=== PATIENT | female | born 1955 ===

== ENCOUNTER 2021-03-20 15:25 | Inpatient (IN) | payer MEDICARE, OTHER ==
[~2021-03-20] VITALS: Ht 167.6 cm; Wt 76.8 kg
[2021-03-20] MEDS ORDERED: CELE100C PO (15:45)
[2021-03-20] MEDS ORDERED: METO-247 PO (16:00)
[2021-03-20] MEDS ORDERED: TEMA15CA6 PO (16:00)
[2021-03-20] MEDS ORDERED: VENL150C PO (16:00)
[2021-03-20] MEDS ORDERED: LITH300T30 PO (16:00)
[2021-03-20] MEDS ORDERED: DONE5TAB56 PO (16:00)
[2021-03-20] MEDS ORDERED: VALA500T5 PO (16:00)
[2021-03-20] MEDS ORDERED: OLAN5TAB99 PO (16:00)
[2021-03-20] MEDS ORDERED: DICL100G28 TP (16:00)
[2021-03-20] MEDS ORDERED: LAMO200T3 PO (16:00)
[2021-03-20] MEDS ORDERED: METHYL SALICYLATE/MENTHOL TOPICAL OINTMENT 57GM TUBE. TP PRN (22:15)
[2021-03-20] MEDS ORDERED: MAGNESIUM HYDROXIDE 2,400 MG/30 ML ORAL.SUSP. PO PRN (22:15)
[2021-03-20] MEDS ORDERED: MAG HYDROX/AL HYDROX/SIMETH 30 ML ORAL.SUSP PO PRN (22:15)
[2021-03-20 22:20] VITALS: BP 151/94
--- NOTE | 2021-03-20 23:00 | NUR ---
Patient has been provided with Practical Counseling for tobacco cessation. It included a face to face interaction and the following was discussed: Recognizing danger situations, Developing coping skills,Basic cessation information. Will follow for discharge needs and discharge planning. Discussed at length the reason she smokes, where in her home she smokes, the emotional tie to smoking addiction issues. She states she wants to quit and there is no reason she can't now that she is admitted. She normally smokes to relieve stress from her situation mostly outside, which also gives her alone time. Pt currently wearing patch which I instructed her to take off at night and apply during the day for maximal sleep benefit. Pt alert and oriented and understands cessation education and was an active participant in the discussion.
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
[2021-03-21 06:17] VITALS: BP 124/86
[2021-03-21 06:22] LABS: BASO % 1 % (0-3); EOS # 0.3 x10^3/uL (0.0-0.7); EOS % 4 % (0-3); HEMATOCRIT 42.1 % (36.0-47.0); LYMPH # 1.6 x10^3/uL (1.0-4.8); LYMPH % 18 % (24-48); MEAN CORPUSCULAR HEMOGLOBIN 32 pg (25-35); MEAN CORPUSCULAR HGB CONC 33 g/dL (31-37); MEAN CORPUSCULAR VOLUME 96 fL (79-100); MONO # 0.8 x10^3/uL (0.0-1.1); MONO % 9 % (0-9); NEUT # 6.2 x10^3uL (1.8-7.7); NEUT % 69 % (31-73); PLATELET COUNT 243 x10^3/uL (140-400); RED BLOOD COUNT 4.37 x10^6/uL (3.50-5.40); RED CELL DISTRIBUTION WIDTH 12.6 % (11.5-14.5)
[2021-03-21 06:33] LABS: BACTERIA,URINE FEW /HPF (0-FEW); BILIRUBIN,URINE NEG (NEG); CLARITY,URINE CLEAR; COLOR,URINE YELLOW; GLUCOSE,URINE NEG (NEG); NITRITE,URINE NEG (NEG); RBC,URINE OCC /HPF (0-2); UROBILINOGEN,URINE 0.2 mg/dL (0.2 mg/dL)
[2021-03-21 06:34] LABS: SQUAMOUS EPITHELIAL CELL,UR FEW /LPF
[2021-03-21 06:39] LABS: ALBUMIN 3.4 g/dL (3.4-5.0); GFR 55.3; POTASSIUM 3.5 mmol/L (3.5-5.1); TOTAL BILIRUBIN 0.8 mg/dL (0.2-1.0); TOTAL PROTEIN 6.8 g/dL (6.4-8.2)
[2021-03-21] MEDS ORDERED: FLU VACC QUAD 21-22 (6MOS+) PF 0.5 ML SYRINGE. VAX IM ONE (09:00)
[2021-03-21] MEDS: NICOTINE 21MG PATCH. TD SCH (09:23)
[2021-03-21] MEDS ORDERED: traZODone 50 MG TABLET. PO PRN ×2 (13:45→20:15)
--- NOTE | 2021-03-21 14:12 | NUR ---
ACTIVITY THERAPY ASSESSMENT completed based on notes, observation and interview. Pt was compliant during time of assessment and pleasant. Pt said that she enjoys walking, reading and drawing. Pt was able to answer all orientation questions without error. Pt stated that she was brought here for her medications. Pt said she either took too many or it was the wrong combination. Pt said that she had a history of depression. Pt states that she has been for 47 years and has three children. Pt reports that she has good contact with her children. Pt does report some stress from being in the hospital and expressed concern for another patient. She said it makes her sad to see another patient struggling. SQL REPORT WRITER explained that the other patient is getting the help she needs. Pt still seemed a bit distraught by the situation. Pt accepted a couple magazines and also has a personal book in her room. Initial goal aimed to increase socialization and engagement. Pt will participate in at least three Activity Therapy sessions per week.
--- NOTE | 2021-03-21 14:48 | NUR ---
Nurse Note Day Shift: Pt presents with calm/pleasant mood/affect. Pt is low-wilkinson on the unit. When asked if pt knew why she was here, pt replied, "I don't know why." Pt is medication compliant, calm and cooperative. Pt is noted to spend time in her bedroom today. Pt slept 3.75 hours last night. Pt is able to make needs known to staff. Will continue to monitor.
[2021-03-21 15:23] VITALS: BP 158/103
--- NOTE | 2021-03-21 15:47 | NUR ---
Pt had a blood pressure of 158/103 at 1523. Retook BP right now and it is 168/115. Pt is resting and relaxing in bed. Doctor has been notified and said to continue to monitor, and to not treat it right now because pt is in a new environment and worked up from being in new environment. Will continue to monitor.
[2021-03-21 15:53] VITALS: BP 168/115
[2021-03-21] MEDS ORDERED: DICLOFENAC SODIUM 1% TOPICAL GEL 100GM TUBE. TP PRN (19:00)
[2021-03-21] MEDS ORDERED: valACYclovir 500 MG TABLET. PO PRN (19:00)
--- NOTE | 2021-03-21 20:29 | PDOC ---
Exam Note: Lito Note: Please also refer to the separate dictated note~for this date of service dictated separately.~Patient seen individually. Discussed the patient with Nursing staff reviewed the chart.~Reviewed interim history and current functioning. Reviewed vital signs,~Labs/ Radiology~and current medications noted below. Continue current treatment with the changes noted in the dictated addendum note Assessment: Vital Signs/I&O: Vital Signs Date Time Temp Pulse Resp B/P (MAP) Pulse Ox O2 Delivery O2 Flow Rate FiO2 03/21/21 15:53 168/115 (132) 03/21/21 15:23 98.0 94 18 93 03/20/21 22:20 Room Air I & O 03/20/21 03/20/21 03/21/21 15:00 23:00 07:00 Intake Total 120 ml Balance 120 ml Labs: Laboratory Tests Test 03/21/21 06:00 03/21/21 06:05 Urine Collection Type Void Urine Color Yellow Urine Clarity Clear Urine pH 6.5 Urine Specific [place] 1.010 Urine Protein Trace (NEG-TRACE) Urine Glucose (UA) Neg mg/dL (NEG) Urine Ketones (Stick) Neg mg/dL (NEG) Urine Blood Trace (NEG) Urine Nitrite Neg (NEG) Urine Bilirubin Neg (NEG) Urine Urobilinogen Dipstick 0.2 mg/dL (0.2 mg/dL) Urine Leukocyte Esterase Mod (NEG) Urine RBC Occ /HPF (0-2) Urine WBC 5-10 /HPF (0-4) Urine Squamous Epithelial Cells Few /LPF Urine Transitional Epithelial Cells Few /LPF Urine Renal Epithelial Cells Few /LPF Urine Bacteria Few /HPF (0-FEW) White Blood Count 9.0 x10^3/uL (4.0-11.0) Red Blood Count 4.37 x10^6/uL (3.50-5.40) Hemoglobin 14.0 g/dL (12.0-15.5) Hematocrit 42.1 % (36.0-47.0) Mean Corpuscular Volume 96 fL (79-100) Mean Corpuscular Hemoglobin 32 pg (25-35) Mean Corpuscular Hemoglobin Concent 33 g/dL (31-37) Red Cell Distribution Width 12.6 % (11.5-14.5) Platelet Count 243 x10^3/uL (140-400) Neutrophils (%) (Auto) 69 % (31-73) Lymphocytes (%) (Auto) 18 % (24-48) L Monocytes (%) (Auto) 9 % (0-9) Eosinophils (%) (Auto) 4 % (0-3) H Basophils (%) (Auto) 1 % (0-3) Neutrophils # (Auto) 6.2 x10^3uL (1.8-7.7) Lymphocytes # (Auto) 1.6 x10^3/uL (1.0-4.8) Monocytes # (Auto) 0.8 x10^3/uL (0.0-1.1) Eosinophils # (Auto) 0.3 x10^3/uL (0.0-0.7) Basophils # (Auto) 0.0 x10^3/uL (0.0-0.2) D-Dimer (Joanna) 10.40 mg/L (0.00-0.50) H Sodium Level 139 mmol/L (136-145) Potassium Level 3.5 mmol/L (3.5-5.1) Chloride Level 106 mmol/L (98-107) Carbon Dioxide Level 21 mmol/L (21-32) Anion Gap 12 (6-14) Blood Urea Nitrogen 23 mg/dL (7-20) H Creatinine 1.0 mg/dL (0.6-1.0) Estimated GFR (Cockcroft-Gault) 55.3 BUN/Creatinine Ratio 23 (6-20) H Glucose Level 102 mg/dL (70-99) H Calcium Level 9.0 mg/dL (8.5-10.1) Magnesium Level 2.1 mg/dL (1.8-2.4) Total Bilirubin 0.8 mg/dL (0.2-1.0) Aspartate Amino Transferase (AST) 26 U/L (15-37) Alanine Aminotransferase (ALT) 26 U/L (14-59) Alkaline Phosphatase 89 U/L (46-116) Total Protein 6.8 g/dL (6.4-8.2) Albumin 3.4 g/dL (3.4-5.0) Albumin/Globulin Ratio 1.0 (1.0-1.7) Current Medications: Meds: Current Medications Medications (Trade) Dose Ordered Sig/Price Route PRN Reason Start Time Stop Time Status Last Admin Dose Admin Nicotine (Nicoderm Cq 21mg Patch) 1 patch DAILY TD 03/21/21 09:00 03/21/21 09:23 I have reviewed the current psychotropics carefully including drug interactions. Risk benefit ratio favors no change other than as noted in my dictated progress note. TAWANDA ALEJANDRO MD Mar 21, 2021 20:28
[2021-03-21] MEDS ORDERED: traZODone 50 MG TABLET. PO SCH (21:00)
[2021-03-21] MEDS: METOPROLOL SUCC 24HR ER 50 MG TAB.ER.24H. PO SCH (21:07)
[2021-03-21] MEDS: CELECOXIB 100 MG CAPSULE PO SCH (21:07)
[2021-03-21] MEDS: lamoTRIgine 100 MG TABLET. PO SCH (21:07)
--- NOTE | 2021-03-21 22:02 | HP ---
DATE OF SERVICE: 03/21/2021 ADMIT DATE: 03/20/2021 PSYCHIATRIC ADMISSION HISTORY/EVALUATION This note covers elements not covered in my initial note 03/21. Previously discussed the patient with Dalia Workman, account coordinator, reviewed information from [facility] where she was admitted from home status post overdose of her medications in a suicide attempt consequent to worsening symptoms of depression within the premorbid history of bipolar disorder. She has been treated at [facility] outpatient treatment in [place] and has failed all of this treatment. The patient's behaviors were deemed dangerous to herself, status post suicidal attempt and referred for inpatient psychiatric stabilization. She had a psychiatric consult completed at [facility] following which she was referred to us. CHIEF COMPLAINT: "Yes, I have been depressed. It got very overwhelming over Thanksgiving with too many people coming when I was not expecting them and it has just been getting worse since then." HISTORY OF PRESENT ILLNESS: The patient has a long history of bipolar disorder, treated outpatient as noted above. Recently, she has been getting increasingly depressed, helpless, hopeless, worthless, with some sleep and appetite changes. She did make the above suicide attempt by overdose, but denies current suicidal ideation. No clear psychotic symptoms or homicidal ideation. She does have a history of mood swings consistent with her bipolar diagnosis. PAST PSYCHIATRIC HISTORY: As above. MEDICATIONS: All her psychotropics have been stopped at [facility] prior to this referral, but before that she was taking Lamictal 200 mg a day, Effexor XR 150 mg a day, Restoril 15 mg at bedtime p.r.n., Aricept 5 mg a day, lithium carbonate 300 mg at bedtime. FAMILY HISTORY: Noncontributory. SOCIAL HISTORY: No history of alcohol, drug abuse, physical, sexual, elder abuse history is noted. She is not known to be a perpetrator. 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 ALLERGIES: CODEINE PHOSPHATE AND IBUPROFEN. CODE STATUS: Full code. PAST MEDICAL HISTORY: Positive for herpes zoster, tobacco use, chronic constipation, hypertension, tinnitus, history of tubal ligation, chronic kidney disease stage III, history of falls, status post Barone catheter. Ambulates independently. Takes medications whole. ACCU-CHEKS: None. DIET: Mechanical soft, bite size renal diet. REVIEW OF SYSTEMS: No CV, , pulmonary, eye, ENT system symptoms on review. Reliability fair. MENTAL STATUS EXAM: Oriented reasonably. Speech is coherent, low in rate and rhythm, low in volume. Abstraction fair. Computation impaired. Language function intact. Attention span short. Mood and affect depressed, but no active suicidal ideation. LABORATORY DATA: Reviewed. IMPRESSION: Bipolar 1 disorder, depressed; anxiety disorder, unspecified; impulse control disorder, unspecified. Rest as above. PLAN: Admit to Geropsychiatry unit at [facility]. I will see the patient daily individually from a psychiatric standpoint, medical followup Dr. Cr/Dr. Stone. We will go ahead and restart Lamictal 100 mg a day given her bipolar disorder diagnosis, depressed. May consider restarting lithium in due course post baseline assessment. Use trazodone 50 mg at bedtime p.r.n. insomnia, may repeat x1; Zyprexa 2.5 mg q. 2 hours p.r.n., psychosis, agitation, max 10 mg in 24 hours. ESTIMATED LENGTH OF STAY: 10-12 days. DISPOSITION PLANS: Possibly back to home and outpatient treatment at [facility]. LISA DR: PEDRO/raiza TID: [id number]
--- NOTE | 2021-03-22 00:09 | NUR ---
Nursing Note Pt pleasant and cooperative. Alseep in bed awakens to voice. No behaviors. Denies Si.
[2021-03-22 00:10] LABS: HEMOGLOBIN A1C 5.2 % (4.8-5.6); THYROXINE 6.5 ug/dL (4.5-12.0)
[2021-03-22 07:24] VITALS: BP 147/93
[2021-03-22] MEDS ORDERED: METOPROLOL SUCC 24HR ER 50 MG TAB.ER.24H. PO SCH (09:00)
[2021-03-22] MEDS: CELECOXIB 100 MG CAPSULE PO SCH ×2 (09:04→21:02)
[2021-03-22] MEDS: METOPROLOL SUCC 24HR ER 50 MG TAB.ER.24H. PO SCH (09:04)
[2021-03-22] MEDS: NICOTINE 21MG PATCH. TD SCH (09:04)
--- NOTE | 2021-03-22 11:50 | NUR ---
Nurse Day Shift Note: Pt presents with calm mood/affect. Pt is medication compliant. Pt is approachable and engages when approached by staff. Pt slept 6.5 hours last night. Pt ate 75% of her breakfast. Pt is low-wilkinson on the unit and is noted to spend time resting quietly in her room. Will continue to monitor.
[2021-03-22 15:16] VITALS: BP 160/110
--- NOTE | 2021-03-22 20:56 | PDOC ---
Exam Note: Lito Note: Please also refer to the separate dictated note~for this date of service dictated separately.~Patient seen individually. Discussed the patient with Nursing staff reviewed the chart.~Reviewed interim history and current functioning. Reviewed vital signs,~Labs/ Radiology~and current medications noted below. Continue current treatment with the changes noted in the dictated addendum note Assessment: Vital Signs/I&O: Vital Signs Date Time Temp Pulse Resp B/P (MAP) Pulse Ox O2 Delivery O2 Flow Rate FiO2 03/22/21 15:16 99.2 79 18 160/110 (127) 97 03/20/21 22:20 Room Air I & O 03/21/21 03/21/21 03/22/21 14:59 22:59 06:59 Intake Total 360 ml 360 ml Balance 360 ml 360 ml Current Medications: Meds: Current Medications Medications (Trade) Dose Ordered Sig/Price Route PRN Reason Start Time Stop Time Status Last Admin Dose Admin Trazodone HCl (Desyrel) 50 mg QHS PO 03/21/21 21:00 03/21/21 21:08 Celecoxib (CeleBREX) 100 mg BID PO 03/21/21 21:00 03/22/21 09:04 Metoprolol Succinate (Toprol Xl) 100 mg DAILY PO 03/21/21 21:00 03/22/21 09:04 Lamotrigine (LaMICtal) 100 mg HS PO 03/21/21 21:00 03/21/21 21:07 I have reviewed the current psychotropics carefully including drug interactions. Risk benefit ratio favors no change other than as noted in my dictated progress note. Diagnosis: Problems: (1) Bipolar 1 disorder, depressed (2) Anxiety disorder, unspecified (3) Impulse control disorder, unspecified TAWANDA ALEJANDRO MD Mar 22, 2021 20:56
[2021-03-22] MEDS: lamoTRIgine 100 MG TABLET. PO SCH (21:02)
[2021-03-22] MEDS: TEMAZEPAM 15 MG CAPSULE PO PRN (21:19)
--- NOTE | 2021-03-22 23:27 | NUR ---
Pt located in the hallway this evening. Pt pleasant and interactive. A/O x4. Pt stated that she had strange dreams last night after taking Trazodone. Dr. Liu discontinued the med. Pt compliant with whole medications. PRN Temazepam administered per pt request. Pt currently sleeping.
[2021-03-23] MEDS: ACETAMINOPHEN 325 MG TABLET PO PRN (04:44)
[2021-03-23 05:46] VITALS: BP 139/78
--- NOTE | 2021-03-23 06:41 | CONS ---
DATE OF CONSULTATION: 03/21/2021 ATTENDING PHYSICIAN: Dr. Alejandro. We are asked to see the patient for medical consultation. HISTORY OF PRESENT ILLNESS: The patient is a 65-year-old female transferred here from [facility] in [place], [place]. She lives in [facility] with her . She has a longstanding history of bipolar disorder. She has become little more agitated. She spray-painted the kitchen when she was in a bad mood. She has had previous overdoses. She has not had previous admission for hospital in-inpatient psychiatric care. There is a history of bipolar I disorder with cognitive impairment. She was sent here for further evaluation and treatment. PAST MEDICAL HISTORY: Also significant for chronic kidney disease, peripheral neuropathy, herpes zoster, chronic constipation, degenerative arthritis and essential hypertension. CURRENT MEDICATIONS: Reviewed. She was on scheduled Celebrex, diclofenac gel, Aricept, Lamictal, lithium, metoprolol, olanzapine, Restoril 15 mg at bedtime p.r.n., Valtrex, and Effexor. ALLERGIES: SHE HAS ALLERGIES TO CODEINE AND IBUPROFEN, EXACT REACTION IS UNCLEAR. SOCIAL HISTORY: She is a nonsmoker, nondrinker. FAMILY HISTORY: Unobtainable. REVIEW OF SYSTEMS: Unobtainable due to the patient's mentation. PHYSICAL EXAMINATION: GENERAL: When I saw her, this is a pleasant, but confused female who appears a little bit agitated. VITAL SIGNS: Initial vital signs showed a blood pressure of 151/94 mmHg, pulse is 95 and regular. She is afebrile. Oxygen saturation 95% on room air. HEENT: Head is without trauma. Pupils are reactive. Sclerae nonicteric. Oropharynx clear. NECK: Supple, no bruits. LUNGS: Otherwise, clear to auscultation. CARDIOVASCULAR: Showed regular heart tones. ABDOMEN: Soft. No guarding. EXTREMITIES: Show no signs of edema. NEUROLOGIC FUNCTION: Pleasantly confused. She is able to eat lunch independently. She has no focal neurologic deficits. SKIN: Warm and dry. PERTINENT LABORATORY STUDIES: Her hemoglobin is 14.0 g/dL with a white count of 9000. Electrolytes within normal range. Creatinine is 1.0 mg/dL, BUN is 23. Transaminases, liver panel all within normal range. Urinalysis was unremarkable. ASSESSMENT: 1. This 65-year-old gentleman from [place] has Bipolar I disorder with manic behavior. 2. Essential hypertension, normotensive. 3. Degenerative arthritis. 4. Previous history of drug overdose. She is stable at this time. 5. This patient is stable from a medical standpoint. I have reviewed all her medications and they should be continued on the same dosage. Thank you again for asking me to see this patient for medical consultation. We should gladly follow along during her inpatient stay. REYMUNDO/BENNY DR: Madhuri TID: [id number] CC: TAWANDA ALEJANDRO MD
[2021-03-23] MEDS: CELECOXIB 100 MG CAPSULE PO SCH ×2 (08:59→20:11)
[2021-03-23] MEDS: NICOTINE 21MG PATCH. TD SCH (08:59)
[2021-03-23] MEDS: METOPROLOL SUCC 24HR ER 50 MG TAB.ER.24H. PO SCH (09:00)
--- NOTE | 2021-03-23 14:44 | NUR ---
Nurse Day Shift Note: Pt presents with neutral mood/affect. Pt is pleasant, cooperative, and calm. Pt is low-wilkinson on the unit. Pt is noted to spend time in the hallway socializing with peers. Pt is approachable and will engage with staff and peers. Pt is able to make needs known to staff. Pt is medication compliant. Pt slept 6.25 hours last night. Pt continues to have a good appetite. Will continue to monitor.
[2021-03-23 15:46] VITALS: BP 149/82
[2021-03-23] MEDS: lamoTRIgine 100 MG TABLET. PO SCH (20:11)
[2021-03-23] MEDS: TEMAZEPAM 15 MG CAPSULE PO PRN (20:12)
--- NOTE | 2021-03-23 20:41 | PDOC ---
Exam Note: Lito Note: Please also refer to the separate dictated note~for this date of service dictated separately.~Patient seen individually. Discussed the patient with Nursing staff reviewed the chart.~Reviewed interim history and current functioning. Reviewed vital signs,~Labs/ Radiology~and current medications noted below. Continue current treatment with the changes noted in the dictated addendum note Assessment: Vital Signs/I&O: Vital Signs Date Time Temp Pulse Resp B/P (MAP) Pulse Ox O2 Delivery O2 Flow Rate FiO2 03/23/21 15:46 97.0 61 18 149/82 (104) 100 03/20/21 22:20 Room Air I & O 03/22/21 03/22/21 03/23/21 15:00 23:00 07:00 Intake Total 680 ml 600 ml Balance 680 ml 600 ml Current Medications: Meds: Current Medications Medications (Trade) Dose Ordered Sig/Price Route PRN Reason Start Time Stop Time Status Last Admin Dose Admin Influenza Virus Vaccine Quadrival (Flulaval Quad [id number] Syringe) 0.5 ml ONCE ONCE VAX IM 03/21/21 09:00 03/21/21 09:01 DC Acetaminophen (Tylenol) 650 mg PRN Q6HRS PRN PO MILD PAIN / TEMP > 100.3'F 03/20/21 22:15 03/23/21 04:44 Multi-Ingredient Ointment (Analgesic [place]) 1 nimisha PRN QID PRN TP MUSCLE PAIN 03/20/21 22:15 Al Hydroxide/Mg Hydroxide (Mylanta Plus Xs) 15 ml PRN AFTMEALHC PRN PO DYSPEPSIA 03/20/21 22:15 Magnesium Hydroxide (Milk Of Magnesia) 2,400 mg PRN QHS PRN PO CONSTIPATION 03/20/21 22:15 Nicotine (Nicoderm Cq 21mg Patch) 1 patch DAILY TD 03/21/21 09:00 03/23/21 08:59 Olanzapine (ZyPREXA ZYDIS) 2.5 mg PRN Q2HR PRN PO PSYCHOSIS 03/21/21 13:30 Trazodone HCl (Desyrel) 50 mg QHS PO 03/21/21 21:00 03/22/21 21:03 DC 03/21/21 21:08 Trazodone HCl (Desyrel) 50 mg PRN QHS PRN PO INSOMNIA 03/21/21 13:45 03/22/21 21:03 DC Celecoxib (CeleBREX) 100 mg BID PO 03/21/21 21:00 03/23/21 20:11 Diclofenac Sodium (Voltaren) 1 nimisha PRN QID PRN TP shoulder or hip pain 03/21/21 19:00 Olanzapine (ZyPREXA ZYDIS) 2.5 mg PRN BID PRN PO ANXIETY / AGITATION 03/21/21 19:00 03/21/21 20:50 DC Valacyclovir HCl (Valtrex) 500 mg PRN Q12HR PRN PO herpes outbreak 03/21/21 19:00 Metoprolol Succinate (Toprol Xl) 100 mg DAILY PO 03/22/21 09:00 03/21/21 19:02 DC Metoprolol Succinate (Toprol Xl) 100 mg DAILY PO 03/21/21 21:00 03/23/21 09:00 Lamotrigine (LaMICtal) 100 mg HS PO 03/21/21 21:00 03/23/21 20:11 Trazodone HCl (Desyrel) 50 mg PRN QHS PRN PO INSOMNIA, MAY REPEAT X1 03/21/21 20:15 03/21/21 20:28 DC Olanzapine (ZyPREXA ZYDIS) 2.5 mg PRN Q2HRS PRN PO PSYCHOSIS 03/21/21 20:15 Cancel Carbamazepine (TEGretol XR) 200 mg QHS PO 03/22/21 21:00 03/23/21 20:11 Temazepam (Restoril) 15 mg PRN QHS PRN PO INSOMNIA 03/22/21 21:15 03/23/21 20:12 Current Medications Medications (Trade) Dose Ordered Sig/Price Route PRN Reason Start Time Stop Time Status Last Admin Dose Admin Carbamazepine (TEGretol XR) 200 mg QHS PO 03/22/21 21:00 03/23/21 20:11 Temazepam (Restoril) 15 mg PRN QHS PRN PO INSOMNIA 03/22/21 21:15 03/23/21 20:12 I have reviewed the current psychotropics carefully including drug interactions. Risk benefit ratio favors no change other than as noted in my dictated progress note. Diagnosis: Problems: (1) Impulse control disorder, unspecified (2) Anxiety disorder, unspecified (3) Bipolar 1 disorder, depressed FLAVIA,MAN M MD Mar 23, 2021 20:41
--- NOTE | 2021-03-23 23:11 | NUR ---
Pt located in her room this evening. Pt pleasant and interactive with this RN. Pt did express frustration with being bored during the day and with the length of her stay, worrying that she would still be here over [place]. Pt denied SI. Compliant with whole medications. PRN Restoril administered per pt request.
[2021-03-24 06:02] VITALS: BP 161/92
--- NOTE | 2021-03-24 08:29 | PDOC ---
Exam Note: Lito Note: This note is a late entry for 03/22/2021 covers elements not covered in my initial note. Subjective: The patient was seen individually in the evening of 03/22/2021 with Karissa JIMENEZ, discussed and reviewed the chart. The patient slept 6-1/2 hours previous night. I met with the patient individually at length in her room. She had a telephone call with her . She has been depressed, withdrawn. Reviewed her past history with her at length and we will get records from [facility] and [facility] for psychiatric and medication list from [facility] pharmacy. Review of Systems: Ambulation impaired with walker. No CV, , pulmonary, eye, ENT system symptoms on review. Mental Status Exam: The patient is reasonably oriented. Speech has some latency, coherent. Abstraction fair. Computation impaired. Language function intact. Mood and affect depressed. No suicidal ideation. Laboratory Data: Reviewed. Impression: Bipolar disorder, depressed. Anxiety disorder unspecified. Impulse control disorder unspecified. Plan: The patient is currently on Lamictal 100 mg a day. We will increase this gradually. Her GFR is 55.3, somewhat low and she is chronic kidney disease stage 3. We will avoid using lithium. Depakote is best avoided since she is on Lamictal and we will start Tegretol 200 mg h.s. Check CBC, CMP, Tegretol level in 3 days. Adjust gradually to reach therapeutic level. We will also start Restoril 15 mg h.s. p.r.n. insomnia since she states she was more confused on the trazodone which we will go ahead and stop. Continue rest unchanged. We may consider Wellbutrin as an antidepressant. Assessment: Vital Signs/I&O: Vital Signs Date Time Temp Pulse Resp B/P (MAP) Pulse Ox O2 Delivery O2 Flow Rate FiO2 03/24/21 06:02 97.6 67 16 161/92 (115) 100 03/20/21 22:20 Room Air I & O 03/23/21 03/23/21 03/24/21 15:00 23:00 07:00 Intake Total 600 ml 480 ml Balance 600 ml 480 ml Current Medications: Meds: Current Medications Medications (Trade) Dose Ordered Sig/Price Route PRN Reason Start Time Stop Time Status Last Admin Dose Admin Influenza Virus Vaccine Quadrival (Flulaval Quad Syringe) 0.5 ml ONCE ONCE VAX IM 03/21/21 09:00 03/21/21 09:01 DC Acetaminophen (Tylenol) 650 mg PRN Q6HRS PRN PO MILD PAIN / TEMP > 100.3'F 03/20/21 22:15 03/23/21 04:44 Multi-Ingredient Ointment (Analgesic [place]) 1 nimisha PRN QID PRN TP MUSCLE PAIN 03/20/21 22:15 Al Hydroxide/Mg Hydroxide (Mylanta Plus Xs) 15 ml PRN AFTMEALHC PRN PO DYSPEPSIA 03/20/21 22:15 Magnesium Hydroxide (Milk Of Magnesia) 2,400 mg PRN QHS PRN PO CONSTIPATION 03/20/21 22:15 Nicotine (Nicoderm Cq 21mg Patch) 1 patch DAILY TD 03/21/21 09:00 03/23/21 08:59 Olanzapine (ZyPREXA ZYDIS) 2.5 mg PRN Q2HR PRN PO PSYCHOSIS 03/21/21 13:30 Trazodone HCl (Desyrel) 50 mg QHS PO 03/21/21 21:00 03/22/21 21:03 DC 03/21/21 21:08 Trazodone HCl (Desyrel) 50 mg PRN QHS PRN PO INSOMNIA 03/21/21 13:45 03/22/21 21:03 DC Celecoxib (CeleBREX) 100 mg BID PO 03/21/21 21:00 03/23/21 20:11 Diclofenac Sodium (Voltaren) 1 nimisha PRN QID PRN TP shoulder or hip pain 03/21/21 19:00 Olanzapine (ZyPREXA ZYDIS) 2.5 mg PRN BID PRN PO ANXIETY / AGITATION 03/21/21 19:00 03/21/21 20:50 DC Valacyclovir HCl (Valtrex) 500 mg PRN Q12HR PRN PO herpes outbreak 03/21/21 19:00 Metoprolol Succinate (Toprol Xl) 100 mg DAILY PO 03/22/21 09:00 03/21/21 19:02 DC Metoprolol Succinate (Toprol Xl) 100 mg DAILY PO 03/21/21 21:00 03/23/21 09:00 Lamotrigine (LaMICtal) 100 mg HS PO 03/21/21 21:00 03/23/21 20:11 Trazodone HCl (Desyrel) 50 mg PRN QHS PRN PO INSOMNIA, MAY REPEAT X1 03/21/21 20:15 03/21/21 20:28 DC Olanzapine (ZyPREXA ZYDIS) 2.5 mg PRN Q2HRS PRN PO PSYCHOSIS 03/21/21 20:15 Cancel Carbamazepine (TEGretol XR) 200 mg QHS PO 03/22/21 21:00 03/23/21 20:11 Temazepam (Restoril) 15 mg PRN QHS PRN PO INSOMNIA 03/22/21 21:15 03/23/21 20:12 I have reviewed the current psychotropics carefully including drug interactions. Risk benefit ratio favors no change other than as noted in my dictated progress note. Diagnosis: Problems: (1) Impulse control disorder, unspecified (2) Anxiety disorder, unspecified (3) Bipolar 1 disorder, depressed TAWANDA ALEJANDRO MD Mar 24, 2021 08:29
--- NOTE | 2021-03-24 08:43 | PDOC ---
Exam Note: Lito Note: This note is a late entry for 03/23/2021 covers elements not covered in my initial note. Subjective: The patient was seen individually in the evening of 03/23/2021 with Karissa JIMENEZ, discussed and reviewed the chart. The patient slept 6-1/4 hours previous night. She slept better with Restoril last night. She is somewhat obsessive, anxious, states she is disappointed that she may not be home for [place]. I reassured her all going well and she should be home for [place]. We are adjusting her psychotropics for mood stability. She seemed to understand. Review of Systems: Ambulation impaired with walker. No CV, , pulmonary, eye, ENT system symptoms on review. Mental Status Exam: The patient is reasonably oriented. Speech has some latency, coherent. Abstraction fair. Computation impaired. Language function intact. Mood and affect depressed, anxious. No suicidal ideation. Laboratory Data: Reviewed. Impression: Bipolar disorder, depressed. Anxiety disorder unspecified. Impulse control disorder unspecified. Plan: Continue current psychotropics but we will adjust the Tegretol depending on the next set of labs and Tegretol level. Assessment: Vital Signs/I&O: Vital Signs Date Time Temp Pulse Resp B/P (MAP) Pulse Ox O2 Delivery O2 Flow Rate FiO2 03/24/21 06:02 97.6 67 16 161/92 (115) 100 03/20/21 22:20 Room Air I & O 03/23/21 03/23/21 03/24/21 15:00 23:00 07:00 Intake Total 600 ml 480 ml Balance 600 ml 480 ml Current Medications: Meds: Current Medications Medications (Trade) Dose Ordered Sig/Price Route PRN Reason Start Time Stop Time Status Last Admin Dose Admin Influenza Virus Vaccine Quadrival (Flulaval Quad Syringe) 0.5 ml ONCE ONCE VAX IM 03/21/21 09:00 03/21/21 09:01 DC Acetaminophen (Tylenol) 650 mg PRN Q6HRS PRN PO MILD PAIN / TEMP > 100.3'F 03/20/21 22:15 03/23/21 04:44 Multi-Ingredient Ointment (Analgesic [place]) 1 nimisha PRN QID PRN TP MUSCLE PAIN 03/20/21 22:15 Al Hydroxide/Mg Hydroxide (Mylanta Plus Xs) 15 ml PRN AFTMEALHC PRN PO DYSPEPSIA 03/20/21 22:15 Magnesium Hydroxide (Milk Of Magnesia) 2,400 mg PRN QHS PRN PO CONSTIPATION 03/20/21 22:15 Nicotine (Nicoderm Cq 21mg Patch) 1 patch DAILY TD 03/21/21 09:00 03/23/21 08:59 Olanzapine (ZyPREXA ZYDIS) 2.5 mg PRN Q2HR PRN PO PSYCHOSIS 03/21/21 13:30 Trazodone HCl (Desyrel) 50 mg QHS PO 03/21/21 21:00 03/22/21 21:03 DC 03/21/21 21:08 Trazodone HCl (Desyrel) 50 mg PRN QHS PRN PO INSOMNIA 03/21/21 13:45 03/22/21 21:03 DC Celecoxib (CeleBREX) 100 mg BID PO 03/21/21 21:00 03/23/21 20:11 Diclofenac Sodium (Voltaren) 1 nimisha PRN QID PRN TP shoulder or hip pain 03/21/21 19:00 Olanzapine (ZyPREXA ZYDIS) 2.5 mg PRN BID PRN PO ANXIETY / AGITATION 03/21/21 19:00 03/21/21 20:50 DC Valacyclovir HCl (Valtrex) 500 mg PRN Q12HR PRN PO herpes outbreak 03/21/21 19:00 Metoprolol Succinate (Toprol Xl) 100 mg DAILY PO 03/22/21 09:00 03/21/21 19:02 DC Metoprolol Succinate (Toprol Xl) 100 mg DAILY PO 03/21/21 21:00 03/23/21 09:00 Lamotrigine (LaMICtal) 100 mg HS PO 03/21/21 21:00 03/23/21 20:11 Trazodone HCl (Desyrel) 50 mg PRN QHS PRN PO INSOMNIA, MAY REPEAT X1 03/21/21 20:15 03/21/21 20:28 DC Olanzapine (ZyPREXA ZYDIS) 2.5 mg PRN Q2HRS PRN PO PSYCHOSIS 03/21/21 20:15 Cancel Carbamazepine (TEGretol XR) 200 mg QHS PO 03/22/21 21:00 03/23/21 20:11 Temazepam (Restoril) 15 mg PRN QHS PRN PO INSOMNIA 03/22/21 21:15 03/23/21 20:12 I have reviewed the current psychotropics carefully including drug interactions. Risk benefit ratio favors no change other than as noted in my dictated progress note. Diagnosis: Problems: (1) Impulse control disorder, unspecified (2) Anxiety disorder, unspecified (3) Bipolar 1 disorder, depressed TAWANDA ALEJANDRO MD Mar 24, 2021 08:42
[2021-03-24] MEDS: CELECOXIB 100 MG CAPSULE PO SCH ×2 (08:44→20:49)
[2021-03-24] MEDS: METOPROLOL SUCC 24HR ER 50 MG TAB.ER.24H. PO SCH (08:45)
[2021-03-24] MEDS: NICOTINE 21MG PATCH. TD SCH (08:46)
[2021-03-24] MEDS: ACETAMINOPHEN 325 MG TABLET PO PRN (11:36)
--- NOTE | 2021-03-24 12:30 | NUR ---
Nurse Day Shift Note: Pt presents with neutral mood/affect this morning. Pt is pleasant. Pt is noted to spend time in her bedroom today. Pt reported feeling concerned that a peer was being moved to the other side of the unit because it left her feeling alone and uncomfortable in the presence of a current peer on the west side of the hallway. Pt reported that it is upsetting to her when her peer starts yelling and getting angry. Pt is calm, cooperative and low-wilkinson on the unit. Pt is medication compliant. Pt slept 7.75 hours last night. Will continue to monitor.
[2021-03-24 15:54] VITALS: BP 164/88
--- NOTE | 2021-03-24 20:13 | PDOC ---
Exam Note: Lito Note: Please also refer to the separate dictated note~for this date of service dictated separately.~Patient seen individually. Discussed the patient with Nursing staff reviewed the chart.~Reviewed interim history and current functioning. Reviewed vital signs,~Labs/ Radiology~and current medications noted below. Continue current treatment with the changes noted in the dictated addendum note Assessment: Vital Signs/I&O: Vital Signs Date Time Temp Pulse Resp B/P (MAP) Pulse Ox O2 Delivery O2 Flow Rate FiO2 03/24/21 15:54 97.4 67 18 164/88 (113) 100 Room Air I & O 03/23/21 03/23/21 03/24/21 15:00 23:00 07:00 Intake Total 600 ml 480 ml Balance 600 ml 480 ml Current Medications: Meds: Current Medications Medications (Trade) Dose Ordered Sig/Price Route PRN Reason Start Time Stop Time Status Last Admin Dose Admin Influenza Virus Vaccine Quadrival (Flulaval Quad 3033-3576 Syringe) 0.5 ml ONCE ONCE VAX IM 03/21/21 09:00 03/21/21 09:01 DC Acetaminophen (Tylenol) 650 mg PRN Q6HRS PRN PO MILD PAIN / TEMP > 100.3'F 03/20/21 22:15 03/24/21 11:36 Multi-Ingredient Ointment (Analgesic [place]) 1 nimisha PRN QID PRN TP MUSCLE PAIN 03/20/21 22:15 Al Hydroxide/Mg Hydroxide (Mylanta Plus Xs) 15 ml PRN AFTMEALHC PRN PO DYSPEPSIA 03/20/21 22:15 Magnesium Hydroxide (Milk Of Magnesia) 2,400 mg PRN QHS PRN PO CONSTIPATION 03/20/21 22:15 Nicotine (Nicoderm Cq 21mg Patch) 1 patch DAILY TD 03/21/21 09:00 03/24/21 08:46 Olanzapine (ZyPREXA ZYDIS) 2.5 mg PRN Q2HR PRN PO PSYCHOSIS 03/21/21 13:30 Trazodone HCl (Desyrel) 50 mg QHS PO 03/21/21 21:00 03/22/21 21:03 DC 03/21/21 21:08 Trazodone HCl (Desyrel) 50 mg PRN QHS PRN PO INSOMNIA 03/21/21 13:45 03/22/21 21:03 DC Celecoxib (CeleBREX) 100 mg BID PO 03/21/21 21:00 03/24/21 08:44 Diclofenac Sodium (Voltaren) 1 nimisha PRN QID PRN TP shoulder or hip pain 03/21/21 19:00 Olanzapine (ZyPREXA ZYDIS) 2.5 mg PRN BID PRN PO ANXIETY / AGITATION 03/21/21 19:00 03/21/21 20:50 DC Valacyclovir HCl (Valtrex) 500 mg PRN Q12HR PRN PO herpes outbreak 03/21/21 19:00 Metoprolol Succinate (Toprol Xl) 100 mg DAILY PO 03/22/21 09:00 03/21/21 19:02 DC Metoprolol Succinate (Toprol Xl) 100 mg DAILY PO 03/21/21 21:00 03/24/21 08:45 Lamotrigine (LaMICtal) 100 mg HS PO 03/21/21 21:00 03/23/21 20:11 Trazodone HCl (Desyrel) 50 mg PRN QHS PRN PO INSOMNIA, MAY REPEAT X1 03/21/21 20:15 03/21/21 20:28 DC Olanzapine (ZyPREXA ZYDIS) 2.5 mg PRN Q2HRS PRN PO PSYCHOSIS 03/21/21 20:15 Cancel Carbamazepine (TEGretol XR) 200 mg QHS PO 03/22/21 21:00 03/23/21 20:11 Temazepam (Restoril) 15 mg PRN QHS PRN PO INSOMNIA 03/22/21 21:15 03/23/21 20:12 I have reviewed the current psychotropics carefully including drug interactions. Risk benefit ratio favors no change other than as noted in my dictated progress note. Diagnosis: Problems: (1) Impulse control disorder, unspecified (2) Anxiety disorder, unspecified (3) Bipolar 1 disorder, depressed TAWANDA ALEJANDRO MD Mar 24, 2021 20:13
[2021-03-24] MEDS: lamoTRIgine 100 MG TABLET. PO SCH (20:49)
[2021-03-24] MEDS: TEMAZEPAM 15 MG CAPSULE PO PRN (22:24)
--- NOTE | 2021-03-25 00:29 | NUR ---
Nursing Note The patient was located in her room for her assessment and medication pass. The patient was alert to name, date and location. The patient took her medication whole. The patient was pleasant during interactions with this nurse. The patient had difficulty sleeping and was given PRN Restoril@[id number] per PRN order.
[2021-03-25] MEDS: ACETAMINOPHEN 325 MG TABLET PO PRN ×2 (03:14→20:46)
[2021-03-25 05:58] LABS: BASO # 0.1 x10^3/uL (0.0-0.2); BASO % 1 % (0-3); EOS # 0.3 x10^3/uL (0.0-0.7); EOS % 4 % (0-3); HEMATOCRIT 40.2 % (36.0-47.0); HEMOGLOBIN 13.5 g/dL (12.0-15.5); LYMPH # 2.7 x10^3/uL (1.0-4.8); LYMPH % 31 % (24-48); MEAN CORPUSCULAR HEMOGLOBIN 32 pg (25-35); MEAN CORPUSCULAR HGB CONC 34 g/dL (31-37); MEAN CORPUSCULAR VOLUME 96 fL (79-100); MONO # 0.7 x10^3/uL (0.0-1.1); MONO % 8 % (0-9); NEUT # 4.8 x10^3uL (1.8-7.7); NEUT % 56 % (31-73); PLATELET COUNT 308 x10^3/uL (140-400); RED BLOOD COUNT 4.19 x10^6/uL (3.50-5.40); RED CELL DISTRIBUTION WIDTH 12.7 % (11.5-14.5); WHITE BLOOD COUNT 8.6 x10^3/uL (4.0-11.0)
[2021-03-25 06:08] VITALS: BP 153/87
[2021-03-25 06:13] LABS: ALBUMIN 3.5 g/dL (3.4-5.0); ALBUMIN/GLOBULIN RATIO 1.1 (1.0-1.7); CALCIUM 9.1 mg/dL (8.5-10.1); CREATININE 1.1 mg/dL (0.6-1.0); GFR 49.5; POTASSIUM 4.2 mmol/L (3.5-5.1); TOTAL BILIRUBIN 0.4 mg/dL (0.2-1.0); TOTAL PROTEIN 6.8 g/dL (6.4-8.2)
--- NOTE | 2021-03-25 06:52 | PDOC ---
Exam Note: Lito Note: This note is a late entry for 03/24/2021 covers elements not covered in my initial note. Subjective: The patient was seen individually in the evening of 03/24/2021 with Cory JIMENEZ, discussed and reviewed the chart. The patient slept 7-3/4 hours previous night. I met with the patient in her room. Overall she is withdrawn, otherwise doing well. She denies suicidal ideation. Review of Systems: Ambulation impaired with walker. No CV, , pulmonary, eye, ENT system symptoms on review. She had a piece of paper with several questions written for me and we went through each one of those individually. Mental Status Exam: The patient is reasonably oriented. Speech coherent. Abstraction fair. Computation impaired. Language function intact. Mood and affect still depressed, anxious. No suicidal ideation. Laboratory Data: Reviewed. Impression: Bipolar disorder, depressed. Anxiety disorder unspecified. Impulse control disorder unspecified. Plan: We will continue to adjust the Tegretol till we reach therapeutic level. Maintain Lamictal unchanged, temazepam for p.r.n. insomnia. Assessment: Vital Signs/I&O: Vital Signs Date Time Temp Pulse Resp B/P (MAP) Pulse Ox O2 Delivery O2 Flow Rate FiO2 03/25/21 06:08 97.1 67 18 153/87 (109) 98 03/24/21 15:54 Room Air I & O 03/24/21 03/24/21 03/25/21 15:00 23:00 07:00 Intake Total 720 ml 340 ml Balance 720 ml 340 ml Labs: Laboratory Tests Test 03/25/21 05:49 White Blood Count 8.6 x10^3/uL (4.0-11.0) Red Blood Count 4.19 x10^6/uL (3.50-5.40) Hemoglobin 13.5 g/dL (12.0-15.5) Hematocrit 40.2 % (36.0-47.0) Mean Corpuscular Volume 96 fL (79-100) Mean Corpuscular Hemoglobin 32 pg (25-35) Mean Corpuscular Hemoglobin Concent 34 g/dL (31-37) Red Cell Distribution Width 12.7 % (11.5-14.5) Platelet Count 308 x10^3/uL (140-400) Neutrophils (%) (Auto) 56 % (31-73) Lymphocytes (%) (Auto) 31 % (24-48) Monocytes (%) (Auto) 8 % (0-9) Eosinophils (%) (Auto) 4 % (0-3) H Basophils (%) (Auto) 1 % (0-3) Neutrophils # (Auto) 4.8 x10^3uL (1.8-7.7) Lymphocytes # (Auto) 2.7 x10^3/uL (1.0-4.8) Monocytes # (Auto) 0.7 x10^3/uL (0.0-1.1) Eosinophils # (Auto) 0.3 x10^3/uL (0.0-0.7) Basophils # (Auto) 0.1 x10^3/uL (0.0-0.2) Sodium Level 142 mmol/L (136-145) Potassium Level 4.2 mmol/L (3.5-5.1) Chloride Level 106 mmol/L (98-107) Carbon Dioxide Level 28 mmol/L (21-32) Anion Gap 8 (6-14) Blood Urea Nitrogen 18 mg/dL (7-20) Creatinine 1.1 mg/dL (0.6-1.0) H Estimated GFR (Cockcroft-Gault) 49.5 BUN/Creatinine Ratio 16 (6-20) Glucose Level 97 mg/dL (70-99) Calcium Level 9.1 mg/dL (8.5-10.1) Total Bilirubin 0.4 mg/dL (0.2-1.0) Aspartate Amino Transferase (AST) 16 U/L (15-37) Alanine Aminotransferase (ALT) 24 U/L (14-59) Alkaline Phosphatase 89 U/L (46-116) Total Protein 6.8 g/dL (6.4-8.2) Albumin 3.5 g/dL (3.4-5.0) Albumin/Globulin Ratio 1.1 (1.0-1.7) Current Medications: Meds: Laboratory Tests Test 03/25/21 05:49 White Blood Count 8.6 x10^3/uL Red Blood Count 4.19 x10^6/uL Hemoglobin 13.5 g/dL Hematocrit 40.2 % Mean Corpuscular Volume 96 fL Mean Corpuscular Hemoglobin 32 pg Mean Corpuscular Hemoglobin Concent 34 g/dL Red Cell Distribution Width 12.7 % Platelet Count 308 x10^3/uL Neutrophils (%) (Auto) 56 % Lymphocytes (%) (Auto) 31 % Monocytes (%) (Auto) 8 % Eosinophils (%) (Auto) 4 % Basophils (%) (Auto) 1 % Neutrophils # (Auto) 4.8 x10^3uL Lymphocytes # (Auto) 2.7 x10^3/uL Monocytes # (Auto) 0.7 x10^3/uL Eosinophils # (Auto) 0.3 x10^3/uL Basophils # (Auto) 0.1 x10^3/uL Sodium Level 142 mmol/L Potassium Level 4.2 mmol/L Chloride Level 106 mmol/L Carbon Dioxide Level 28 mmol/L Anion Gap 8 Blood Urea Nitrogen 18 mg/dL Creatinine 1.1 mg/dL Estimated GFR (Cockcroft-Gault) 49.5 BUN/Creatinine Ratio 16 Glucose Level 97 mg/dL Calcium Level 9.1 mg/dL Total Bilirubin 0.4 mg/dL Aspartate Amino Transf (AST/SGOT) 16 U/L Alanine Aminotransferase (ALT/SGPT) 24 U/L Alkaline Phosphatase 89 U/L Total Protein 6.8 g/dL Albumin 3.5 g/dL Albumin/Globulin Ratio 1.1 Current Medications Medications (Trade) Dose Ordered Sig/Price Route PRN Reason Start Time Stop Time Status Last Admin Dose Admin Influenza Virus Vaccine Quadrival (Flulaval Quad 0176-1013 Syringe) 0.5 ml ONCE ONCE VAX IM 03/21/21 09:00 03/21/21 09:01 DC Acetaminophen (Tylenol) 650 mg PRN Q6HRS PRN PO MILD PAIN / TEMP > 100.3'F 03/20/21 22:15 03/25/21 03:14 Multi-Ingredient Ointment (Analgesic [place]) 1 nimisha PRN QID PRN TP MUSCLE PAIN 03/20/21 22:15 Al Hydroxide/Mg Hydroxide (Mylanta Plus Xs) 15 ml PRN AFTMEALHC PRN PO DYSPEPSIA 03/20/21 22:15 Magnesium Hydroxide (Milk Of Magnesia) 2,400 mg PRN QHS PRN PO CONSTIPATION 03/20/21 22:15 Nicotine (Nicoderm Cq 21mg Patch) 1 patch DAILY TD 03/21/21 09:00 03/24/21 08:46 Olanzapine (ZyPREXA ZYDIS) 2.5 mg PRN Q2HR PRN PO PSYCHOSIS 03/21/21 13:30 Trazodone HCl (Desyrel) 50 mg QHS PO 03/21/21 21:00 03/22/21 21:03 DC 03/21/21 21:08 Trazodone HCl (Desyrel) 50 mg PRN QHS PRN PO INSOMNIA 03/21/21 13:45 03/22/21 21:03 DC Celecoxib (CeleBREX) 100 mg BID PO 03/21/21 21:00 03/24/21 20:49 Diclofenac Sodium (Voltaren) 1 nimisha PRN QID PRN TP shoulder or hip pain 03/21/21 19:00 Olanzapine (ZyPREXA ZYDIS) 2.5 mg PRN BID PRN PO ANXIETY / AGITATION 03/21/21 19:00 03/21/21 20:50 DC Valacyclovir HCl (Valtrex) 500 mg PRN Q12HR PRN PO herpes outbreak 03/21/21 19:00 Metoprolol Succinate (Toprol Xl) 100 mg DAILY PO 03/22/21 09:00 03/21/21 19:02 DC Metoprolol Succinate (Toprol Xl) 100 mg DAILY PO 03/21/21 21:00 03/24/21 08:45 Lamotrigine (LaMICtal) 100 mg HS PO 03/21/21 21:00 03/24/21 20:49 Trazodone HCl (Desyrel) 50 mg PRN QHS PRN PO INSOMNIA, MAY REPEAT X1 03/21/21 20:15 03/21/21 20:28 DC Olanzapine (ZyPREXA ZYDIS) 2.5 mg PRN Q2HRS PRN PO PSYCHOSIS 03/21/21 20:15 Cancel Carbamazepine (TEGretol XR) 200 mg QHS PO 03/22/21 21:00 03/24/21 20:49 Temazepam (Restoril) 15 mg PRN QHS PRN PO INSOMNIA 03/22/21 21:15 03/24/21 22:24 I have reviewed the current psychotropics carefully including drug interactions. Risk benefit ratio favors no change other than as noted in my dictated progress note. Diagnosis: Problems: (1) Impulse control disorder, unspecified (2) Anxiety disorder, unspecified (3) Bipolar 1 disorder, depressed TAWANDA ALEJANDRO MD Mar 25, 2021 06:52
[2021-03-25] MEDS: NICOTINE 21MG PATCH. TD SCH (07:44)
[2021-03-25] MEDS: CELECOXIB 100 MG CAPSULE PO SCH ×2 (07:45→20:39)
[2021-03-25] MEDS: METOPROLOL SUCC 24HR ER 50 MG TAB.ER.24H. PO SCH (07:45)
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
[2021-03-25 16:13] VITALS: BP 160/63
[2021-03-25 16:32] LABS: CARBAM 4.7 mcg/mL (4.0-12.0)
[2021-03-25] MEDS: lamoTRIgine 100 MG TABLET. PO SCH (20:39)
[2021-03-25] MEDS: TEMAZEPAM 15 MG CAPSULE PO PRN (20:40)
--- NOTE | 2021-03-25 21:08 | PDOC ---
Exam Note: Lito Note: Please also refer to the separate dictated note~for this date of service dictated separately.~Patient seen individually. Discussed the patient with Nursing staff reviewed the chart.~Reviewed interim history and current functioning. Reviewed vital signs,~Labs/ Radiology~and current medications noted below. Continue current treatment with the changes noted in the dictated addendum note Assessment: Vital Signs/I&O: Vital Signs Date Time Temp Pulse Resp B/P (MAP) Pulse Ox O2 Delivery O2 Flow Rate FiO2 03/25/21 16:13 97.4 63 19 160/63 (95) 95 03/24/21 15:54 Room Air I & O 03/24/21 03/24/21 03/25/21 15:00 23:00 07:00 Intake Total 720 ml 340 ml Balance 720 ml 340 ml Labs: Laboratory Tests Test 03/25/21 05:49 White Blood Count 8.6 x10^3/uL (4.0-11.0) Red Blood Count 4.19 x10^6/uL (3.50-5.40) Hemoglobin 13.5 g/dL (12.0-15.5) Hematocrit 40.2 % (36.0-47.0) Mean Corpuscular Volume 96 fL (79-100) Mean Corpuscular Hemoglobin 32 pg (25-35) Mean Corpuscular Hemoglobin Concent 34 g/dL (31-37) Red Cell Distribution Width 12.7 % (11.5-14.5) Platelet Count 308 x10^3/uL (140-400) Neutrophils (%) (Auto) 56 % (31-73) Lymphocytes (%) (Auto) 31 % (24-48) Monocytes (%) (Auto) 8 % (0-9) Eosinophils (%) (Auto) 4 % (0-3) H Basophils (%) (Auto) 1 % (0-3) Neutrophils # (Auto) 4.8 x10^3uL (1.8-7.7) Lymphocytes # (Auto) 2.7 x10^3/uL (1.0-4.8) Monocytes # (Auto) 0.7 x10^3/uL (0.0-1.1) Eosinophils # (Auto) 0.3 x10^3/uL (0.0-0.7) Basophils # (Auto) 0.1 x10^3/uL (0.0-0.2) Sodium Level 142 mmol/L (136-145) Potassium Level 4.2 mmol/L (3.5-5.1) Chloride Level 106 mmol/L (98-107) Carbon Dioxide Level 28 mmol/L (21-32) Anion Gap 8 (6-14) Blood Urea Nitrogen 18 mg/dL (7-20) Creatinine 1.1 mg/dL (0.6-1.0) H Estimated GFR (Cockcroft-Gault) 49.5 BUN/Creatinine Ratio 16 (6-20) Glucose Level 97 mg/dL (70-99) Calcium Level 9.1 mg/dL (8.5-10.1) Total Bilirubin 0.4 mg/dL (0.2-1.0) Aspartate Amino Transferase (AST) 16 U/L (15-37) Alanine Aminotransferase (ALT) 24 U/L (14-59) Alkaline Phosphatase 89 U/L (46-116) Total Protein 6.8 g/dL (6.4-8.2) Albumin 3.5 g/dL (3.4-5.0) Albumin/Globulin Ratio 1.1 (1.0-1.7) Carbamazepine (Tegretol) Level 4.7 mcg/mL (4.0-12.0) Carbamazepine Last Dose Date 03/24/21 Carbamazepine Last Dose Time 2100 Current Medications: Meds: Laboratory Tests Test 03/25/21 05:49 White Blood Count 8.6 x10^3/uL Red Blood Count 4.19 x10^6/uL Hemoglobin 13.5 g/dL Hematocrit 40.2 % Mean Corpuscular Volume 96 fL Mean Corpuscular Hemoglobin 32 pg Mean Corpuscular Hemoglobin Concent 34 g/dL Red Cell Distribution Width 12.7 % Platelet Count 308 x10^3/uL Neutrophils (%) (Auto) 56 % Lymphocytes (%) (Auto) 31 % Monocytes (%) (Auto) 8 % Eosinophils (%) (Auto) 4 % Basophils (%) (Auto) 1 % Neutrophils # (Auto) 4.8 x10^3uL Lymphocytes # (Auto) 2.7 x10^3/uL Monocytes # (Auto) 0.7 x10^3/uL Eosinophils # (Auto) 0.3 x10^3/uL Basophils # (Auto) 0.1 x10^3/uL Sodium Level 142 mmol/L Potassium Level 4.2 mmol/L Chloride Level 106 mmol/L Carbon Dioxide Level 28 mmol/L Anion Gap 8 Blood Urea Nitrogen 18 mg/dL Creatinine 1.1 mg/dL Estimated GFR (Cockcroft-Gault) 49.5 BUN/Creatinine Ratio 16 Glucose Level 97 mg/dL Calcium Level 9.1 mg/dL Total Bilirubin 0.4 mg/dL Aspartate Amino Transf (AST/SGOT) 16 U/L Alanine Aminotransferase (ALT/SGPT) 24 U/L Alkaline Phosphatase 89 U/L Total Protein 6.8 g/dL Albumin 3.5 g/dL Albumin/Globulin Ratio 1.1 Carbamazepine (Tegretol) Level 4.7 mcg/mL Carbamazepine Last Dose Date 03/24/21 Carbamazepine Last Dose Time 2100 Current Medications Medications (Trade) Dose Ordered Sig/Price Route PRN Reason Start Time Stop Time Status Last Admin Dose Admin Influenza Virus Vaccine Quadrival (Flulaval Quad [id number] Syringe) 0.5 ml ONCE ONCE VAX IM 03/21/21 09:00 03/21/21 09:01 DC Acetaminophen (Tylenol) 650 mg PRN Q6HRS PRN PO MILD PAIN / TEMP > 100.3'F 03/20/21 22:15 03/25/21 20:46 Multi-Ingredient Ointment (Analgesic [place]) 1 nimisah PRN QID PRN TP MUSCLE PAIN 03/20/21 22:15 Al Hydroxide/Mg Hydroxide (Mylanta Plus Xs) 15 ml PRN AFTMEALHC PRN PO DYSPEPSIA 03/20/21 22:15 Magnesium Hydroxide (Milk Of Magnesia) 2,400 mg PRN QHS PRN PO CONSTIPATION 03/20/21 22:15 Nicotine (Nicoderm Cq 21mg Patch) 1 patch DAILY TD 03/21/21 09:00 03/25/21 07:44 Olanzapine (ZyPREXA ZYDIS) 2.5 mg PRN Q2HR PRN PO PSYCHOSIS 03/21/21 13:30 Trazodone HCl (Desyrel) 50 mg QHS PO 03/21/21 21:00 03/22/21 21:03 DC 03/21/21 21:08 Trazodone HCl (Desyrel) 50 mg PRN QHS PRN PO INSOMNIA 03/21/21 13:45 03/22/21 21:03 DC Celecoxib (CeleBREX) 100 mg BID PO 03/21/21 21:00 03/25/21 20:39 Diclofenac Sodium (Voltaren) 1 nimisha PRN QID PRN TP shoulder or hip pain 03/21/21 19:00 Olanzapine (ZyPREXA ZYDIS) 2.5 mg PRN BID PRN PO ANXIETY / AGITATION 03/21/21 19:00 03/21/21 20:50 DC Valacyclovir HCl (Valtrex) 500 mg PRN Q12HR PRN PO herpes outbreak 03/21/21 19:00 Metoprolol Succinate (Toprol Xl) 100 mg DAILY PO 03/22/21 09:00 03/21/21 19:02 DC Metoprolol Succinate (Toprol Xl) 100 mg DAILY PO 03/21/21 21:00 03/25/21 07:45 Lamotrigine (LaMICtal) 100 mg HS PO 03/21/21 21:00 03/25/21 20:39 Trazodone HCl (Desyrel) 50 mg PRN QHS PRN PO INSOMNIA, MAY REPEAT X1 03/21/21 20:15 03/21/21 20:28 DC Olanzapine (ZyPREXA ZYDIS) 2.5 mg PRN Q2HRS PRN PO PSYCHOSIS 03/21/21 20:15 Cancel Carbamazepine (TEGretol XR) 200 mg QHS PO 03/22/21 21:00 03/25/21 20:02 DC 03/24/21 20:49 Temazepam (Restoril) 15 mg PRN QHS PRN PO INSOMNIA 03/22/21 21:15 03/25/21 20:40 Carbamazepine (TEGretol XR) 200 mg BID PO 03/25/21 21:00 03/25/21 20:39 Current Medications Medications (Trade) Dose Ordered Sig/Price Route PRN Reason Start Time Stop Time Status Last Admin Dose Admin Carbamazepine (TEGretol XR) 200 mg BID PO 03/25/21 21:00 03/25/21 20:39 I have reviewed the current psychotropics carefully including drug interactions. Risk benefit ratio favors no change other than as noted in my dictated progress note. Diagnosis: Problems: (1) Impulse control disorder, unspecified (2) Anxiety disorder, unspecified (3) Bipolar 1 disorder, depressed FLAVIA,MAN M MD Mar 25, 2021 21:07
--- NOTE | 2021-03-25 23:15 | NUR ---
Pt states that she is frustrated about still being here. Pt states that she does not have anything to do and she is bored. Feels as if she might be getting manic again. Pt declined lisset and books to read this evening. States she just wants to sleep. Compliant with whole medications. PRN Restoril administered per pt request.
[2021-03-26] MEDS: ACETAMINOPHEN 325 MG TABLET PO PRN ×3 (02:33→20:36)
--- NOTE | 2021-03-26 03:53 | NUR ---
Pt awake in her room, crying/sobbing. Pt requested an emergency psych doctor to speak with her now and became upset when informed that there wasn't a doctor marketing communications manager but pt could speak with this RN. Pt stated that she is upset about being here. Pt states she is not sleeping at night anymore. Pt states she is bored and there is nothing to do. Pt stated "we eat, we sit, we eat, we sit again...we do nothing all day." Pt repeatedly asking how many more days she will be here and if she will be gone by Jarred. Pt stated that she feels like she is getting manic and is having racing thoughts. Pt stated that is tries to journal but "I write and then I cry." This RN offered a book or magazine. Pt declined. Music on the lisset was offered. Pt stated that the music makes her cry. Informed pt that she could play games on the lisset; pt stated she doesn't like games. This RN sat and talked with pt for an extended amount of time. Pt was still frustrated at the end of the conversation. NENITA Noonan administered for anxiety. Will continue to monitor.
[2021-03-26 06:03] VITALS: BP 154/98
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
[2021-03-26] MEDS: CELECOXIB 100 MG CAPSULE PO SCH ×2 (09:20→20:32)
[2021-03-26] MEDS: METOPROLOL SUCC 24HR ER 50 MG TAB.ER.24H. PO SCH (09:20)
[2021-03-26] MEDS: NICOTINE 21MG PATCH. TD SCH (09:21)
--- NOTE | 2021-03-26 13:00 | NUR ---
SAVANAH left a message for pt , Bridger, to contact SAVANAH when possible re: an update on pt.
[2021-03-26 16:03] VITALS: BP 165/81
--- NOTE | 2021-03-26 16:39 | NUR ---
Nursing note: Pt has been pleasant, med compliant and cooperative this shift. She denies having any SI. She reports how bored she is being in the observation kamara and asks how many more days she will be here once she moves to the other kamara. Pt was informed that it varies based on the pt and how they are doing, there really is no concrete timeframe on how many days. Pt was accepting of answer provided. She denies having any SI and has been interactive with staff and peers this shift. She is currently sitting quietly in the kamara. Will continue to monitor.
[2021-03-26] MEDS: lamoTRIgine 100 MG TABLET. PO SCH (20:32)
[2021-03-26] MEDS: TEMAZEPAM 15 MG CAPSULE PO PRN (20:35)
--- NOTE | 2021-03-26 21:04 | PDOC ---
Exam Note: Lito Note: Please also refer to the separate dictated note~for this date of service dictated separately.~Patient seen individually. Discussed the patient with Nursing staff reviewed the chart.~Reviewed interim history and current functioning. Reviewed vital signs,~Labs/ Radiology~and current medications noted below. Continue current treatment with the changes noted in the dictated addendum note Assessment: Vital Signs/I&O: Vital Signs Date Time Temp Pulse Resp B/P (MAP) Pulse Ox O2 Delivery O2 Flow Rate FiO2 03/26/21 16:03 98.6 63 18 165/81 (109) 98 Room Air I & O 03/25/21 03/25/21 03/26/21 15:00 23:00 07:00 Intake Total 980 ml 360 ml 100 ml Balance 980 ml 360 ml 100 ml Current Medications: Meds: Current Medications Medications (Trade) Dose Ordered Sig/Price Route PRN Reason Start Time Stop Time Status Last Admin Dose Admin Influenza Virus Vaccine Quadrival (Flulaval Quad [id number] Syringe) 0.5 ml ONCE ONCE VAX IM 03/21/21 09:00 03/21/21 09:01 DC Acetaminophen (Tylenol) 650 mg PRN Q6HRS PRN PO MILD PAIN / TEMP > 100.3'F 03/20/21 22:15 03/26/21 20:36 Multi-Ingredient Ointment (Analgesic [place]) 1 nimisha PRN QID PRN TP MUSCLE PAIN 03/20/21 22:15 Al Hydroxide/Mg Hydroxide (Mylanta Plus Xs) 15 ml PRN AFTMEALHC PRN PO DYSPEPSIA 03/20/21 22:15 Magnesium Hydroxide (Milk Of Magnesia) 2,400 mg PRN QHS PRN PO CONSTIPATION 03/20/21 22:15 Nicotine (Nicoderm Cq 21mg Patch) 1 patch DAILY TD 03/21/21 09:00 03/26/21 09:21 Olanzapine (ZyPREXA ZYDIS) 2.5 mg PRN Q2HR PRN PO PSYCHOSIS 03/21/21 13:30 03/26/21 03:47 Trazodone HCl (Desyrel) 50 mg QHS PO 03/21/21 21:00 03/22/21 21:03 DC 03/21/21 21:08 Trazodone HCl (Desyrel) 50 mg PRN QHS PRN PO INSOMNIA 03/21/21 13:45 03/22/21 21:03 DC Celecoxib (CeleBREX) 100 mg BID PO 03/21/21 21:00 03/26/21 20:32 Diclofenac Sodium (Voltaren) 1 nimisha PRN QID PRN TP shoulder or hip pain 03/21/21 19:00 Olanzapine (ZyPREXA ZYDIS) 2.5 mg PRN BID PRN PO ANXIETY / AGITATION 03/21/21 19:00 03/21/21 20:50 DC Valacyclovir HCl (Valtrex) 500 mg PRN Q12HR PRN PO herpes outbreak 03/21/21 19:00 Metoprolol Succinate (Toprol Xl) 100 mg DAILY PO 03/22/21 09:00 03/21/21 19:02 DC Metoprolol Succinate (Toprol Xl) 100 mg DAILY PO 03/21/21 21:00 03/26/21 09:20 Lamotrigine (LaMICtal) 100 mg HS PO 03/21/21 21:00 03/26/21 20:32 Trazodone HCl (Desyrel) 50 mg PRN QHS PRN PO INSOMNIA, MAY REPEAT X1 03/21/21 20:15 03/21/21 20:28 DC Olanzapine (ZyPREXA ZYDIS) 2.5 mg PRN Q2HRS PRN PO PSYCHOSIS 03/21/21 20:15 Cancel Carbamazepine (TEGretol XR) 200 mg QHS PO 03/22/21 21:00 03/25/21 20:02 DC 03/24/21 20:49 Temazepam (Restoril) 15 mg PRN QHS PRN PO INSOMNIA 03/22/21 21:15 03/26/21 18:21 DC 03/25/21 20:40 Carbamazepine (TEGretol XR) 200 mg BID PO 03/25/21 21:00 03/26/21 20:32 Temazepam (Restoril) 30 mg PRN QHS PRN PO INSOMNIA 03/26/21 18:30 03/26/21 20:35 Current Medications Medications (Trade) Dose Ordered Sig/Price Route PRN Reason Start Time Stop Time Status Last Admin Dose Admin Temazepam (Restoril) 30 mg PRN QHS PRN PO INSOMNIA 03/26/21 18:30 03/26/21 20:35 I have reviewed the current psychotropics carefully including drug interactions. Risk benefit ratio favors no change other than as noted in my dictated progress note. Diagnosis: Problems: (1) Impulse control disorder, unspecified (2) Anxiety disorder, unspecified (3) Bipolar 1 disorder, depressed TAWANDA ALEJANDRO MD Mar 26, 2021 21:04
--- NOTE | 2021-03-26 22:58 | NUR ---
Nursing Note Pt in room, pleasant and cooperative, compliant with meds and assessments. Resting well at this time. Denies complaints.
[2021-03-27] MEDS: ACETAMINOPHEN 325 MG TABLET PO PRN (01:45)
--- NOTE | 2021-03-27 02:19 | NUR ---
Nursing Note Pt given Zyprexa and tylenol for insomnia. Sitting in her room, up writing in her journal.
[2021-03-27] MEDS: METOPROLOL SUCC 24HR ER 50 MG TAB.ER.24H. PO SCH (08:09)
[2021-03-27] MEDS: CELECOXIB 100 MG CAPSULE PO SCH ×2 (08:09→20:54)
[2021-03-27] MEDS: NICOTINE 21MG PATCH. TD SCH (08:09)
--- NOTE | 2021-03-27 08:18 | PDOC ---
Exam Note: Lito Note: This note is a late entry for 03/26/2021 covers elements not covered in my initial note. Subjective: The patient was seen individually in the evening of 03/26/2021 with Ericka JIMENEZ, discussed and reviewed the chart. The patient slept 5-3/4 hours previous night. Overall she has been depressed. She states she is bored, somewhat obsessive regarding discharge, sobbing at night. Review of Systems: Ambulation impaired with walker. No CV, , pulmonary, eye, ENT system symptoms on review. Mental Status Exam: The patient is reasonably oriented. Speech coherent. Abstraction fair. Computation impaired. Language function intact. Mood and affect remains somewhat depressed, anxious, labile at times. She subjectively feels she is getting manic though she appears more depressed. Laboratory Data: Reviewed. Impression: Bipolar disorder, depressed. Anxiety disorder unspecified. Impulse control disorder unspecified. Plan: Continue current psychotropics. Increase Restoril to 30 mg h.s. and she did not sleep well last night and previously was on 30 mg a day. Continue to adjust the Tegretol. Rest unchanged for now. Assessment: Vital Signs/I&O: Vital Signs Date Time Temp Pulse Resp B/P (MAP) Pulse Ox O2 Delivery O2 Flow Rate FiO2 03/27/21 08:09 63 165/81 03/26/21 16:03 98.6 18 98 Room Air I & O 03/26/21 03/26/21 03/27/21 15:00 23:00 07:00 Intake Total 960 ml 480 ml Balance 960 ml 480 ml Current Medications: Meds: Current Medications Medications (Trade) Dose Ordered Sig/Price Route PRN Reason Start Time Stop Time Status Last Admin Dose Admin Influenza Virus Vaccine Quadrival (Flulaval Quad Syringe) 0.5 ml ONCE ONCE VAX IM 03/21/21 09:00 03/21/21 09:01 DC Acetaminophen (Tylenol) 650 mg PRN Q6HRS PRN PO MILD PAIN / TEMP > 100.3'F 03/20/21 22:15 03/27/21 01:45 Multi-Ingredient Ointment (Analgesic [place]) 1 nimisha PRN QID PRN TP MUSCLE PAIN 03/20/21 22:15 Al Hydroxide/Mg Hydroxide (Mylanta Plus Xs) 15 ml PRN AFTMEALHC PRN PO DYSPEPSIA 03/20/21 22:15 Magnesium Hydroxide (Milk Of Magnesia) 2,400 mg PRN QHS PRN PO CONSTIPATION 03/20/21 22:15 Nicotine (Nicoderm Cq 21mg Patch) 1 patch DAILY TD 03/21/21 09:00 03/27/21 08:09 Olanzapine (ZyPREXA ZYDIS) 2.5 mg PRN Q2HR PRN PO PSYCHOSIS 03/21/21 13:30 03/27/21 01:45 Trazodone HCl (Desyrel) 50 mg QHS PO 03/21/21 21:00 03/22/21 21:03 DC 03/21/21 21:08 Trazodone HCl (Desyrel) 50 mg PRN QHS PRN PO INSOMNIA 03/21/21 13:45 03/22/21 21:03 DC Celecoxib (CeleBREX) 100 mg BID PO 03/21/21 21:00 03/27/21 08:09 Diclofenac Sodium (Voltaren) 1 nimisha PRN QID PRN TP shoulder or hip pain 03/21/21 19:00 Olanzapine (ZyPREXA ZYDIS) 2.5 mg PRN BID PRN PO ANXIETY / AGITATION 03/21/21 19:00 03/21/21 20:50 DC Valacyclovir HCl (Valtrex) 500 mg PRN Q12HR PRN PO herpes outbreak 03/21/21 19:00 Metoprolol Succinate (Toprol Xl) 100 mg DAILY PO 03/22/21 09:00 03/21/21 19:02 DC Metoprolol Succinate (Toprol Xl) 100 mg DAILY PO 03/21/21 21:00 03/27/21 08:09 Lamotrigine (LaMICtal) 100 mg HS PO 03/21/21 21:00 03/26/21 20:32 Trazodone HCl (Desyrel) 50 mg PRN QHS PRN PO INSOMNIA, MAY REPEAT X1 03/21/21 20:15 03/21/21 20:28 DC Olanzapine (ZyPREXA ZYDIS) 2.5 mg PRN Q2HRS PRN PO PSYCHOSIS 03/21/21 20:15 Cancel Carbamazepine (TEGretol XR) 200 mg QHS PO 03/22/21 21:00 03/25/21 20:02 DC 03/24/21 20:49 Temazepam (Restoril) 15 mg PRN QHS PRN PO INSOMNIA 03/22/21 21:15 03/26/21 18:21 DC 03/25/21 20:40 Carbamazepine (TEGretol XR) 200 mg BID PO 03/25/21 21:00 03/27/21 08:08 Temazepam (Restoril) 30 mg PRN QHS PRN PO INSOMNIA 03/26/21 18:30 03/26/21 20:35 Current Medications Medications (Trade) Dose Ordered Sig/Price Route PRN Reason Start Time Stop Time Status Last Admin Dose Admin Temazepam (Restoril) 30 mg PRN QHS PRN PO INSOMNIA 03/26/21 18:30 03/26/21 20:35 I have reviewed the current psychotropics carefully including drug interactions. Risk benefit ratio favors no change other than as noted in my dictated progress note. Diagnosis: Problems: (1) Impulse control disorder, unspecified (2) Anxiety disorder, unspecified (3) Bipolar 1 disorder, depressed TAWANDA ALEJANDRO MD Mar 27, 2021 08:18
[2021-03-27 09:00] VITALS: BP 157/94
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
--- NOTE | 2021-03-27 12:24 | NUR ---
SAVANAH received call from Nick, pt , to give him and update on pt and to discuss the potential for discharge on Wednesday or . As it stands, pt is requesting Wednesday. He noted that he is currently sanding the cabinets and repainting the ones she spray painted. Nick noted that she gets manic roughly once a month but is more manageable; however, he was not sure what happened this go around in order to have her take the pills. SAVANAH and Nick discussed him monitoring her medications and having them locked up as a preventative measure. If she appears to be taking her medications and her moods are better, they can re-evaluate this after a few weeks. Pt will plan a Wednesday tow picker at 10AM; however, will plan to confirm this on Wednesday with SAVANAH to ensure nothing has changed.
--- NOTE | 2021-03-27 12:43 | NUR ---
Treatment team update: Pt is eating roughly 75% of meals and sleeping on average 6 hours per night; however, last night pt slept 3.75 hours with her PRN Remeron administered. Pt reports some frustration with having to be here still and appears to be bored. Pt is aware to the fact that she is currently manic with some lability and notes that she needs something to do during this time. Pt is interactive with her peers and appears to be less depressed. Pt had been given gum and was noted to be rationing her gum. This morning it was noted that pt had gum stuck in her hair and she appeared somewhat embarrassed. "Here I was supposed to make sure others couldn't get it in order to avoid this happening, but it happened to me". Due to pt current mood, Zyprexa 5mg will be added to her HS regime. Pt is to have her Covid swab completed so that she can move over to the [facility]. Pt is to return home to her with an ELOS for Wednesday at 10AM.
--- NOTE | 2021-03-27 14:57 | NUR ---
Nursing note: Pt has been pleasant, med compliant and cooperative this shift. Pt had been saving her gum that she had received and stuck it to her glasses in order to not throw it away and to keep it from other pt's, but pt forgot about it and went to put her glasses on and ended up getting the gum stuck in her hair. She was embarrassed by this incident, but is also laughing about it, and questioned what we could do to get it out. After some discussion and trial and error, most of the gum was able to be removed from her hair. Pt has been social with staff and peers this shift. She is excited to move to the other hallway as soon as her Covid swab is resulted. She is currently sitting quietly in the kamara. Will continue to monitor.
[2021-03-27 15:52] VITALS: BP 130/82
[2021-03-27] MEDS: OLANZapine 5 MG TABLET PO SCH (20:54)
[2021-03-27] MEDS: lamoTRIgine 100 MG TABLET. PO SCH (20:54)
--- NOTE | 2021-03-27 21:09 | PDOC ---
Exam Note: Lito Note: Please also refer to the separate dictated note~for this date of service dictated separately.~Patient seen individually. Discussed the patient with Nursing staff reviewed the chart.~Reviewed interim history and current functioning. Reviewed vital signs,~Labs/ Radiology~and current medications noted below. Continue current treatment with the changes noted in the dictated addendum note Assessment: Vital Signs/I&O: Vital Signs Date Time Temp Pulse Resp B/P (MAP) Pulse Ox O2 Delivery O2 Flow Rate FiO2 03/27/21 15:52 98.7 61 16 130/82 (98) 99 Room Air I & O 03/26/21 03/26/21 03/27/21 15:00 23:00 07:00 Intake Total 960 ml 480 ml Balance 960 ml 480 ml Labs: Laboratory Tests Test 03/27/21 11:00 SARS-CoV-2 (PCR) Not detected (NOT DETECTD) Current Medications: Meds: Laboratory Tests Test 03/27/21 11:00 Coronavirus (COVID-19)(PCR) Not detected Current Medications Medications (Trade) Dose Ordered Sig/Price Route PRN Reason Start Time Stop Time Status Last Admin Dose Admin Influenza Virus Vaccine Quadrival (Flulaval Quad 8029-9862 Syringe) 0.5 ml ONCE ONCE VAX IM 03/21/21 09:00 03/21/21 09:01 DC Acetaminophen (Tylenol) 650 mg PRN Q6HRS PRN PO MILD PAIN / TEMP > 100.3'F 03/20/21 22:15 03/27/21 01:45 Multi-Ingredient Ointment (Analgesic [place]) 1 nimisha PRN QID PRN TP MUSCLE PAIN 03/20/21 22:15 Al Hydroxide/Mg Hydroxide (Mylanta Plus Xs) 15 ml PRN AFTMEALHC PRN PO DYSPEPSIA 03/20/21 22:15 Magnesium Hydroxide (Milk Of Magnesia) 2,400 mg PRN QHS PRN PO CONSTIPATION 03/20/21 22:15 Nicotine (Nicoderm Cq 21mg Patch) 1 patch DAILY TD 03/21/21 09:00 03/27/21 08:09 Olanzapine (ZyPREXA ZYDIS) 2.5 mg PRN Q2HR PRN PO PSYCHOSIS 03/21/21 13:30 03/27/21 01:45 Trazodone HCl (Desyrel) 50 mg QHS PO 03/21/21 21:00 03/22/21 21:03 DC 03/21/21 21:08 Trazodone HCl (Desyrel) 50 mg PRN QHS PRN PO INSOMNIA 03/21/21 13:45 03/22/21 21:03 DC Celecoxib (CeleBREX) 100 mg BID PO 03/21/21 21:00 03/27/21 20:54 Diclofenac Sodium (Voltaren) 1 nimisha PRN QID PRN TP shoulder or hip pain 03/21/21 19:00 Olanzapine (ZyPREXA ZYDIS) 2.5 mg PRN BID PRN PO ANXIETY / AGITATION 03/21/21 19:00 03/21/21 20:50 DC Valacyclovir HCl (Valtrex) 500 mg PRN Q12HR PRN PO herpes outbreak 03/21/21 19:00 Metoprolol Succinate (Toprol Xl) 100 mg DAILY PO 03/22/21 09:00 03/21/21 19:02 DC Metoprolol Succinate (Toprol Xl) 100 mg DAILY PO 03/21/21 21:00 03/27/21 08:09 Lamotrigine (LaMICtal) 100 mg HS PO 03/21/21 21:00 03/27/21 20:54 Trazodone HCl (Desyrel) 50 mg PRN QHS PRN PO INSOMNIA, MAY REPEAT X1 03/21/21 20:15 03/21/21 20:28 DC Olanzapine (ZyPREXA ZYDIS) 2.5 mg PRN Q2HRS PRN PO PSYCHOSIS 03/21/21 20:15 Cancel Carbamazepine (TEGretol XR) 200 mg QHS PO 03/22/21 21:00 03/25/21 20:02 DC 03/24/21 20:49 Temazepam (Restoril) 15 mg PRN QHS PRN PO INSOMNIA 03/22/21 21:15 03/26/21 18:21 DC 03/25/21 20:40 Carbamazepine (TEGretol XR) 200 mg BID PO 03/25/21 21:00 03/27/21 20:54 Temazepam (Restoril) 30 mg PRN QHS PRN PO INSOMNIA 03/26/21 18:30 03/26/21 20:35 Olanzapine (ZyPREXA) 5 mg QHS PO 03/27/21 21:00 03/27/21 20:54 Current Medications Medications (Trade) Dose Ordered Sig/Price Route PRN Reason Start Time Stop Time Status Last Admin Dose Admin Olanzapine (ZyPREXA) 5 mg QHS PO 03/27/21 21:00 03/27/21 20:54 I have reviewed the current psychotropics carefully including drug interactions. Risk benefit ratio favors no change other than as noted in my dictated progress note. Diagnosis: Problems: (1) Impulse control disorder, unspecified (2) Anxiety disorder, unspecified (3) Bipolar 1 disorder, depressed TAWANDA ALEJANDRO MD Mar 27, 2021 21:09
--- NOTE | 2021-03-28 01:16 | NUR ---
Nursing Note Pt is sleeping this pm was pleasant and cooperative at shift change no complaints. Takes po meds willingly, less manic tonight. Sits in her room, writing in her tablet. Alert and oriented X4.
[2021-03-28] MEDS: ACETAMINOPHEN 325 MG TABLET PO PRN ×2 (02:39→20:40)
[2021-03-28 06:18] VITALS: BP 188/93
--- NOTE | 2021-03-28 07:00 | PDOC ---
Exam Note: Lito Note: This note is a late entry for 03/27/2021 covers elements not covered in my initial note. Subjective: The patient was reviewed at treatment team meeting individually in the morning on 03/27/2021 with Anna Choudhary, Dalia Hensley, and Ivana Edouard (social services designee), Loren Eng (Material Specialist), Raysa, activity therapy, and Ericka JIMENEZ, discussed and reviewed the chart. The patient slept 3- 3/4 hours previous night. Average sleep 6 hours. Appetite 75%. She states she feels manic. At home when she gets manic, she said she paints the house and does a lot of other things but she is unable to do otherwise. Today she denies being as depressed as before. Review of Systems: Ambulation impaired with walker. No CV, , pulmonary, eye, ENT system symptoms on review. Mental Status Exam: The patient is reasonably oriented. Speech coherent, less pressured. Abstraction fair. Computation impaired. Language function intact. Mood and affect is less withdrawn. Laboratory Data: Reviewed. Impression: Bipolar disorder, depressed. Anxiety disorder unspecified. Impulse control disorder unspecified. Plan: Continue current psychotropics. Start Zyprexa 5 mg p.o. h.s. Maintain Tegretol 200 mg b.i.d. Check labs and Tegretol level. Adjust to reach therapeutic level. Maintain temazepam 30 mg h.s. but given her ongoing insomnia, despite this we may need to look at alternatives. We will go ahead and also increase Lamictal gradually. Make further adjustments as clinically indicated. Assessment: Vital Signs/I&O: Vital Signs Date Time Temp Pulse Resp B/P (MAP) Pulse Ox O2 Delivery O2 Flow Rate FiO2 03/28/21 06:18 98.0 71 17 188/93 (124) 92 Room Air I & O 03/27/21 03/27/21 03/28/21 14:59 22:59 06:59 Intake Total 600 ml 700 ml Balance 600 ml 700 ml Labs: Laboratory Tests Test 03/27/21 11:00 SARS-CoV-2 (PCR) Not detected (NOT DETECTD) Current Medications: Meds: Laboratory Tests Test 03/27/21 11:00 Coronavirus (COVID-19)(PCR) Not detected Current Medications Medications (Trade) Dose Ordered Sig/Price Route PRN Reason Start Time Stop Time Status Last Admin Dose Admin Influenza Virus Vaccine Quadrival (Flulaval Quad Syringe) 0.5 ml ONCE ONCE VAX IM 03/21/21 09:00 03/21/21 09:01 DC Acetaminophen (Tylenol) 650 mg PRN Q6HRS PRN PO MILD PAIN / TEMP > 100.3'F 03/20/21 22:15 03/28/21 02:39 Multi-Ingredient Ointment (Analgesic [place]) 1 nimisha PRN QID PRN TP MUSCLE PAIN 03/20/21 22:15 Al Hydroxide/Mg Hydroxide (Mylanta Plus Xs) 15 ml PRN AFTMEALHC PRN PO DYSPEPSIA 03/20/21 22:15 Magnesium Hydroxide (Milk Of Magnesia) 2,400 mg PRN QHS PRN PO CONSTIPATION 03/20/21 22:15 Nicotine (Nicoderm Cq 21mg Patch) 1 patch DAILY TD 03/21/21 09:00 03/27/21 08:09 Olanzapine (ZyPREXA ZYDIS) 2.5 mg PRN Q2HR PRN PO PSYCHOSIS 03/21/21 13:30 03/27/21 01:45 Trazodone HCl (Desyrel) 50 mg QHS PO 03/21/21 21:00 03/22/21 21:03 DC 03/21/21 21:08 Trazodone HCl (Desyrel) 50 mg PRN QHS PRN PO INSOMNIA 03/21/21 13:45 03/22/21 21:03 DC Celecoxib (CeleBREX) 100 mg BID PO 03/21/21 21:00 03/27/21 20:54 Diclofenac Sodium (Voltaren) 1 nimisha PRN QID PRN TP shoulder or hip pain 03/21/21 19:00 Olanzapine (ZyPREXA ZYDIS) 2.5 mg PRN BID PRN PO ANXIETY / AGITATION 03/21/21 19:00 03/21/21 20:50 DC Valacyclovir HCl (Valtrex) 500 mg PRN Q12HR PRN PO herpes outbreak 03/21/21 19:00 Metoprolol Succinate (Toprol Xl) 100 mg DAILY PO 03/22/21 09:00 03/21/21 19:02 DC Metoprolol Succinate (Toprol Xl) 100 mg DAILY PO 03/21/21 21:00 03/27/21 08:09 Lamotrigine (LaMICtal) 100 mg HS PO 03/21/21 21:00 03/27/21 20:54 Trazodone HCl (Desyrel) 50 mg PRN QHS PRN PO INSOMNIA, MAY REPEAT X1 03/21/21 20:15 03/21/21 20:28 DC Olanzapine (ZyPREXA ZYDIS) 2.5 mg PRN Q2HRS PRN PO PSYCHOSIS 03/21/21 20:15 Cancel Carbamazepine (TEGretol XR) 200 mg QHS PO 03/22/21 21:00 03/25/21 20:02 DC 03/24/21 20:49 Temazepam (Restoril) 15 mg PRN QHS PRN PO INSOMNIA 03/22/21 21:15 03/26/21 18:21 DC 03/25/21 20:40 Carbamazepine (TEGretol XR) 200 mg BID PO 03/25/21 21:00 03/27/21 20:54 Temazepam (Restoril) 30 mg PRN QHS PRN PO INSOMNIA 03/26/21 18:30 03/26/21 20:35 Olanzapine (ZyPREXA) 5 mg QHS PO 03/27/21 21:00 03/27/21 20:54 Current Medications Medications (Trade) Dose Ordered Sig/Price Route PRN Reason Start Time Stop Time Status Last Admin Dose Admin Olanzapine (ZyPREXA) 5 mg QHS PO 03/27/21 21:00 03/27/21 20:54 I have reviewed the current psychotropics carefully including drug interactions. Risk benefit ratio favors no change other than as noted in my dictated progress note. Diagnosis: Problems: (1) Impulse control disorder, unspecified (2) Anxiety disorder, unspecified (3) Bipolar 1 disorder, depressed TAWANDA ALEJANDRO MD Mar 28, 2021 07:00
[2021-03-28] MEDS: CELECOXIB 100 MG CAPSULE PO SCH ×2 (08:37→20:14)
[2021-03-28] MEDS: METOPROLOL SUCC 24HR ER 50 MG TAB.ER.24H. PO SCH (08:37)
[2021-03-28] MEDS: NICOTINE 21MG PATCH. TD SCH (08:37)
--- NOTE | 2021-03-28 09:27 | NUR ---
Pt retired back to bed after breakfast. She is appropriate in her interactions with this nurse, she denies SI/HI/VH/AH/pain at this time. Absent of delusional statements and behaviors. She is compliant with whole medications and receptive to education provided. Plan of care continues, will pass to next shift.
[2021-03-28 15:31] VITALS: BP 181/82
--- NOTE | 2021-03-28 16:59 | NUR ---
[facility] Social Work Discharge Planning Form Patient Name LINCOLN OTOOLE Admit Date: 20 March 2021 DISCHARGE PLAN Discharge Destination: Pt to discharge home with Care Assessment: N/A Level II Assessment: N/A Transportation: Pt , Nick, to pick pt up around 10AM Special Instructions/Notes: Please fax discharge orders, medication list and discharge summary to the fax number(s) listed below. DISCHARGE TO HOME: Address: [address] [place] [address]; [place] [address] Responsible Libertarian: Nick Wagner Pharmacy: All Contact Information: [address], [place] [address] Psychiatrist/Mental Health Follow Up: Pt sees Inés Worrell for therapy; will make her own appointment with pt. Primary Care Follow Up: Ruchi Valderrama Contact Information: [address], [place] [address] Appointment: follow up with physician if needed
[2021-03-28] MEDS: lamoTRIgine 100 MG TABLET. PO SCH (20:13)
[2021-03-28] MEDS: OLANZapine 5 MG TABLET PO SCH (20:14)
--- NOTE | 2021-03-28 21:06 | PDOC ---
Exam Note: Lito Note: Please also refer to the separate dictated note~for this date of service dictated separately.~Patient seen individually. Discussed the patient with Nursing staff reviewed the chart.~Reviewed interim history and current functioning. Reviewed vital signs,~Labs/ Radiology~and current medications noted below. Continue current treatment with the changes noted in the dictated addendum note Assessment: Vital Signs/I&O: Vital Signs Date Time Temp Pulse Resp B/P (MAP) Pulse Ox O2 Delivery O2 Flow Rate FiO2 03/28/21 15:31 98.0 65 16 181/82 (115) 98 03/28/21 06:18 Room Air I & O 03/27/21 03/27/21 03/28/21 15:00 23:00 07:00 Intake Total 600 ml 700 ml Balance 600 ml 700 ml Current Medications: Meds: Current Medications Medications (Trade) Dose Ordered Sig/Price Route PRN Reason Start Time Stop Time Status Last Admin Dose Admin Influenza Virus Vaccine Quadrival (Flulaval Quad [id number] Syringe) 0.5 ml ONCE ONCE VAX IM 03/21/21 09:00 03/21/21 09:01 DC Acetaminophen (Tylenol) 650 mg PRN Q6HRS PRN PO MILD PAIN / TEMP > 100.3'F 03/20/21 22:15 03/28/21 20:40 Multi-Ingredient Ointment (Analgesic [place]) 1 nimisha PRN QID PRN TP MUSCLE PAIN 03/20/21 22:15 Al Hydroxide/Mg Hydroxide (Mylanta Plus Xs) 15 ml PRN AFTMEALHC PRN PO DYSPEPSIA 03/20/21 22:15 Magnesium Hydroxide (Milk Of Magnesia) 2,400 mg PRN QHS PRN PO CONSTIPATION 03/20/21 22:15 Nicotine (Nicoderm Cq 21mg Patch) 1 patch DAILY TD 03/21/21 09:00 03/28/21 08:37 Olanzapine (ZyPREXA ZYDIS) 2.5 mg PRN Q2HR PRN PO PSYCHOSIS 03/21/21 13:30 03/27/21 01:45 Trazodone HCl (Desyrel) 50 mg QHS PO 03/21/21 21:00 03/22/21 21:03 DC 03/21/21 21:08 Trazodone HCl (Desyrel) 50 mg PRN QHS PRN PO INSOMNIA 03/21/21 13:45 03/22/21 21:03 DC Celecoxib (CeleBREX) 100 mg BID PO 03/21/21 21:00 03/28/21 20:14 Diclofenac Sodium (Voltaren) 1 nimisha PRN QID PRN TP shoulder or hip pain 03/21/21 19:00 Olanzapine (ZyPREXA ZYDIS) 2.5 mg PRN BID PRN PO ANXIETY / AGITATION 03/21/21 19:00 03/21/21 20:50 DC Valacyclovir HCl (Valtrex) 500 mg PRN Q12HR PRN PO herpes outbreak 03/21/21 19:00 Metoprolol Succinate (Toprol Xl) 100 mg DAILY PO 03/22/21 09:00 03/21/21 19:02 DC Metoprolol Succinate (Toprol Xl) 100 mg DAILY PO 03/21/21 21:00 03/28/21 08:37 Lamotrigine (LaMICtal) 100 mg HS PO 03/21/21 21:00 03/28/21 20:13 Trazodone HCl (Desyrel) 50 mg PRN QHS PRN PO INSOMNIA, MAY REPEAT X1 03/21/21 20:15 03/21/21 20:28 DC Olanzapine (ZyPREXA ZYDIS) 2.5 mg PRN Q2HRS PRN PO PSYCHOSIS 03/21/21 20:15 Cancel Carbamazepine (TEGretol XR) 200 mg QHS PO 03/22/21 21:00 03/25/21 20:02 DC 03/24/21 20:49 Temazepam (Restoril) 15 mg PRN QHS PRN PO INSOMNIA 03/22/21 21:15 03/26/21 18:21 DC 03/25/21 20:40 Carbamazepine (TEGretol XR) 200 mg BID PO 03/25/21 21:00 03/28/21 20:13 Temazepam (Restoril) 30 mg PRN QHS PRN PO INSOMNIA 03/26/21 18:30 03/26/21 20:35 Olanzapine (ZyPREXA) 5 mg QHS PO 03/27/21 21:00 03/28/21 20:14 I have reviewed the current psychotropics carefully including drug interactions. Risk benefit ratio favors no change other than as noted in my dictated progress note. Diagnosis: Problems: (1) Impulse control disorder, unspecified (2) Anxiety disorder, unspecified (3) Bipolar 1 disorder, depressed TAWANDA ALEJANDRO MD Mar 28, 2021 21:06
[2021-03-28] MEDS: TEMAZEPAM 15 MG CAPSULE PO PRN (23:23)
--- NOTE | 2021-03-28 23:45 | NUR ---
Patient is located in her room on assumption of care. She is in pleasant spirits, appropriate and interactive with this nurse. She is enjoying socializing with her roommate. She denies any thoughts of SI or self harm. She did complain of bilateral leg discomfort and requested PRN Tylenol, which she received with her HS meds. A short time later, she came back to the nurses station and said her legs were still bothering her and she couldn't sleep. This nurse listed what she had available for PRNs and what they were for, and she requested to have Gonzalez and [place], which she received at 2320. Patient remains awake in bed but expresses improvement in leg pain. Will continue to monitor.
[2021-03-29 05:50] VITALS: BP_SYST 127; BP_SYST 150; BP_DIAS 72; BP_DIAS 81
--- NOTE | 2021-03-29 07:58 | PDOC ---
Exam Note: Lito Note: This note is a late entry for 03/28/2021 covers elements not covered in my initial note. Subjective: The patient was seen individually in the evening of 03/28/2021 with Liza JIMENEZ, discussed and reviewed the chart. The patient slept 5-1/2 hours previous night and we will maintain temazepam 30 mg h.s. Patient has moved to the regular side of the unit rather than having finished the Covid side. Tegretol level will be checked tomorrow. Overall her mood is better. She states she is less depressed, very interactive with one of the other female patients on the unit. Review of Systems: No CV, , pulmonary, eye, ENT system symptoms on review. Mental Status Exam: The patient is oriented to herself and situation. Speech coherent. Abstraction fair. Computation impaired. Language function intact. Mood and affect still somewhat anxious, labile, depressed but improved significantly. No suicidal ideation. Laboratory Data: Reviewed. Impression: Bipolar disorder, depressed. Anxiety disorder unspecified. Impulse control disorder unspecified. Plan: Continue current psychotropics. Adjust Tegretol post level tomorrow. Assessment: Vital Signs/I&O: Vital Signs Date Time Temp Pulse Resp B/P (MAP) Pulse Ox O2 Delivery O2 Flow Rate FiO2 03/29/21 05:50 97.1 55 16 150/81 (104) 98 Room Air I & O 03/28/21 03/28/21 03/29/21 15:00 23:00 07:00 Intake Total 1080 ml 360 ml Balance 1080 ml 360 ml Current Medications: Meds: Current Medications Medications (Trade) Dose Ordered Sig/Price Route PRN Reason Start Time Stop Time Status Last Admin Dose Admin Influenza Virus Vaccine Quadrival (Flulaval Quad Syringe) 0.5 ml ONCE ONCE VAX IM 03/21/21 09:00 03/21/21 09:01 DC Acetaminophen (Tylenol) 650 mg PRN Q6HRS PRN PO MILD PAIN / TEMP > 100.3'F 03/20/21 22:15 03/28/21 20:40 Multi-Ingredient Ointment (Analgesic [place]) 1 nimisha PRN QID PRN TP MUSCLE PAIN 03/20/21 22:15 03/28/21 23:23 Al Hydroxide/Mg Hydroxide (Mylanta Plus Xs) 15 ml PRN AFTMEALHC PRN PO DYSPEPSIA 03/20/21 22:15 Magnesium Hydroxide (Milk Of Magnesia) 2,400 mg PRN QHS PRN PO CONSTIPATION 03/20/21 22:15 Nicotine (Nicoderm Cq 21mg Patch) 1 patch DAILY TD 03/21/21 09:00 03/28/21 08:37 Olanzapine (ZyPREXA ZYDIS) 2.5 mg PRN Q2HR PRN PO PSYCHOSIS 03/21/21 13:30 03/27/21 01:45 Trazodone HCl (Desyrel) 50 mg QHS PO 03/21/21 21:00 03/22/21 21:03 DC 03/21/21 21:08 Trazodone HCl (Desyrel) 50 mg PRN QHS PRN PO INSOMNIA 03/21/21 13:45 03/22/21 21:03 DC Celecoxib (CeleBREX) 100 mg BID PO 03/21/21 21:00 03/28/21 20:14 Diclofenac Sodium (Voltaren) 1 nimisha PRN QID PRN TP shoulder or hip pain 03/21/21 19:00 Olanzapine (ZyPREXA ZYDIS) 2.5 mg PRN BID PRN PO ANXIETY / AGITATION 03/21/21 19:00 03/21/21 20:50 DC Valacyclovir HCl (Valtrex) 500 mg PRN Q12HR PRN PO herpes outbreak 03/21/21 19:00 Metoprolol Succinate (Toprol Xl) 100 mg DAILY PO 03/22/21 09:00 03/21/21 19:02 DC Metoprolol Succinate (Toprol Xl) 100 mg DAILY PO 03/21/21 21:00 03/28/21 08:37 Lamotrigine (LaMICtal) 100 mg HS PO 03/21/21 21:00 03/28/21 20:13 Trazodone HCl (Desyrel) 50 mg PRN QHS PRN PO INSOMNIA, MAY REPEAT X1 03/21/21 20:15 03/21/21 20:28 DC Olanzapine (ZyPREXA ZYDIS) 2.5 mg PRN Q2HRS PRN PO PSYCHOSIS 03/21/21 20:15 Cancel Carbamazepine (TEGretol XR) 200 mg QHS PO 03/22/21 21:00 03/25/21 20:02 DC 03/24/21 20:49 Temazepam (Restoril) 15 mg PRN QHS PRN PO INSOMNIA 03/22/21 21:15 03/26/21 18:21 DC 03/25/21 20:40 Carbamazepine (TEGretol XR) 200 mg BID PO 03/25/21 21:00 03/28/21 20:13 Temazepam (Restoril) 30 mg PRN QHS PRN PO INSOMNIA 03/26/21 18:30 03/28/21 23:23 Olanzapine (ZyPREXA) 5 mg QHS PO 03/27/21 21:00 03/28/21 20:14 I have reviewed the current psychotropics carefully including drug interactions. Risk benefit ratio favors no change other than as noted in my dictated progress note. Diagnosis: Problems: (1) Impulse control disorder, unspecified (2) Anxiety disorder, unspecified (3) Bipolar 1 disorder, depressed TAWANDA ALEJANDRO MD Mar 29, 2021 07:57
[2021-03-29] MEDS: NICOTINE 21MG PATCH. TD SCH (08:27)
[2021-03-29] MEDS: CELECOXIB 100 MG CAPSULE PO SCH ×2 (08:28→20:25)
[2021-03-29] MEDS: METOPROLOL SUCC 24HR ER 50 MG TAB.ER.24H. PO SCH (08:28)
[2021-03-29] MEDS: ACETAMINOPHEN 325 MG TABLET PO PRN ×2 (09:23→20:58)
[2021-03-29 10:45] LABS: BASO # 0.1 x10^3/uL (0.0-0.2); BASO % 1 % (0-3); EOS # 0.2 x10^3/uL (0.0-0.7); EOS % 2 % (0-3); HEMATOCRIT 39.4 % (36.0-47.0); HEMOGLOBIN 13.1 g/dL (12.0-15.5); LYMPH # 2.3 x10^3/uL (1.0-4.8); LYMPH % 28 % (24-48); MEAN CORPUSCULAR HEMOGLOBIN 32 pg (25-35); MEAN CORPUSCULAR HGB CONC 33 g/dL (31-37); MEAN CORPUSCULAR VOLUME 96 fL (79-100); MONO # 0.6 x10^3/uL (0.0-1.1); MONO % 8 % (0-9); NEUT % 62 % (31-73); PLATELET COUNT 360 x10^3/uL (140-400); RED BLOOD COUNT 4.11 x10^6/uL (3.50-5.40); RED CELL DISTRIBUTION WIDTH 12.8 % (11.5-14.5); WHITE BLOOD COUNT 8.1 x10^3/uL (4.0-11.0)
[2021-03-29 11:16] LABS: ALBUMIN 3.6 g/dL (3.4-5.0); ALBUMIN/GLOBULIN RATIO 1.1 (1.0-1.7); CALCIUM 9.3 mg/dL (8.5-10.1); CREATININE 1.2 mg/dL (0.6-1.0); GFR 44.8; POTASSIUM 4.5 mmol/L (3.5-5.1); TOTAL BILIRUBIN 0.2 mg/dL (0.2-1.0); TOTAL PROTEIN 6.9 g/dL (6.4-8.2)
[2021-03-29 14:59] LABS: CARBAM 6.6 mcg/mL (4.0-12.0)
[2021-03-29 15:07] VITALS: BP 145/90
--- NOTE | 2021-03-29 15:16 | NUR ---
Pt up adl to meals. Has been social, pleasant, and compliant. Is ready to go home.
[2021-03-29] MEDS: lamoTRIgine 100 MG TABLET. PO SCH (20:26)
[2021-03-29] MEDS: OLANZapine 5 MG TABLET PO SCH (20:26)
[2021-03-29] MEDS: TEMAZEPAM 15 MG CAPSULE PO PRN (23:23)
--- NOTE | 2021-03-29 23:59 | NUR ---
Patient is located in her room on assumption of care. She is in pleasant spirits, appropriate and interactive with this nurse. She is enjoying socializing with her roommate. She denies any thoughts of SI or self harm. As she had the previous evening, she complained of bilateral leg discomfort and requested PRN Tylenol, which she received with her HS meds. Shortly after going to bed, she came to the nurses station and stated "I had a bad dream and I woke up and she is yelling (patient in the next room). It's making me nervous." PRN Zydis given at 2215. Patient asked if she could sit in the hallway and read for a bit, which she did. At 2330, she requested PRN Restoril, pending effect at this time. Will continue to monitor.
[2021-03-30] MEDS ORDERED: ACET325T21 PO (00:40)
[2021-03-30] MEDS ORDERED: MAGN24003 PO (00:42)
[2021-03-30] MEDS ORDERED: MAG-115 PO (00:42)
[2021-03-30] MEDS ORDERED: METH120C4 TP (00:44)
[2021-03-30] MEDS ORDERED: NICO1PAT21 TD (00:45)
[2021-03-30] MEDS ORDERED: OLAN5TAB67 PO (00:46)
[2021-03-30] MEDS ORDERED: CARB200T37 PO (00:47)
[2021-03-30] MEDS ORDERED: LAMO100T8 PO (00:49)
--- NOTE | 2021-03-30 02:04 | PN ---
DATE: 03/29/2021 SUBJECTIVE: The patient was seen today, met with the staff. Chart was reviewed and also covering for Dr. Liu. Staff reports no major behavior problems. The patient apparently compliant with the treatment and staff reports she may be discharged in the next couple of days. OBSERVATION: VITAL SIGNS: Temperature 96.2, blood pressure 127/72, pulse 72, respirations 20, O2 sat 93%. GENERAL: Slept about 6 hours last night. The patient's appetite is fair. CURRENT MEDICATIONS: Include olanzapine 5 mg at night, temazepam 30 mg at night p.r.n., Tegretol 200 mg twice a day, Lamictal 100 mg at night, olanzapine 2.5 mg q.2 hours p.r.n. LABORATORY DATA: The patient's lab reviewed. Staff reports no other physical problems at this time and no falls. ASSESSMENT: Bipolar disorder, depressed. PLAN: The patient is planned for discharge in two to three days. DAHIANA DR: Celsa TID: [id number]
[2021-03-30 05:27] VITALS: BP 145/78
[2021-03-30] MEDS: NICOTINE 21MG PATCH. TD SCH (08:28)
[2021-03-30] MEDS: CELECOXIB 100 MG CAPSULE PO SCH ×2 (08:29→20:11)
[2021-03-30] MEDS: METOPROLOL SUCC 24HR ER 50 MG TAB.ER.24H. PO SCH (08:29)
--- NOTE | 2021-03-30 09:55 | NUR ---
Pt present and visible on the unit. She denies pain when asked, absent of SI/HI behaviors. She is compliant with whole medications and is receptive to education provided. She appears to at times insert herself into the affairs of her peers, for example asking how many mg of Seroquel another individual is taking. Aside from this, her behaviors are appropriate and pleasant. Plan of care continues, will pass to next shift.
[2021-03-30 15:36] VITALS: BP 123/73
[2021-03-30] MEDS: lamoTRIgine 100 MG TABLET. PO SCH (20:10)
[2021-03-30] MEDS: ACETAMINOPHEN 325 MG TABLET PO PRN (20:11)
[2021-03-30] MEDS: TEMAZEPAM 15 MG CAPSULE PO PRN (20:11)
[2021-03-30] MEDS: OLANZapine 5 MG TABLET PO SCH (20:11)
--- NOTE | 2021-03-30 21:00 | PN ---
DATE: 03/30/2021 SUBJECTIVE: The patient was seen today, met with the staff. Chart was reviewed and also covering for Dr. Liu. Staff reports no major behavior problems. The patient is compliant with the treatment. OBSERVATION: VITAL SIGNS: Temperature 97.7, blood pressure 145/78, pulse 52, respirations 18, O2 sat 99%. GENERAL: Slept about 5 hours last night. The patient's appetite improved. LABORATORY DATA: The patient's lab reviewed. MEDICATIONS: The patient's current medications include olanzapine 5 mg at night, temazepam 30 mg at night p.r.n., Tegretol 200 mg b.i.d., Lamictal 100 mg at night. She is also on olanzapine 2.5 mg q. 2 hours p.r.n. ASSESSMENT: Bipolar disorder, depressed. PLAN: To continue with treatment. LENGTH OF STAY: Two to three days. IRAM DR: Celsa TID: [id number]
--- NOTE | 2021-03-30 23:59 | NUR ---
Patient is located in her room on assumption of care. She is in pleasant spirits, appropriate and interactive with this nurse. She is enjoying socializing with her roommate. She denies any thoughts of SI or self harm. She requested Tylenol and Restoril to be given with her HS meds, stating "I want to make sure I get a good nights sleep since I am going home tomorrow." She appears to be sleeping comfortably at present time. Will continue to monitor.
[2021-03-31 05:48] VITALS: BP 158/75
[2021-03-31 08:38] VITALS: BP 158/75
[2021-03-31] MEDS: CELECOXIB 100 MG CAPSULE PO SCH (08:38)
[2021-03-31] MEDS: METOPROLOL SUCC 24HR ER 50 MG TAB.ER.24H. PO SCH (08:38)
[2021-03-31] MEDS: NICOTINE 21MG PATCH. TD SCH (08:41)
--- NOTE | 2021-03-31 10:49 | NUR ---
Tobacco Discharge Note [facility] Tobacco Hotline called with patient prior to discharge, Pt refused Tobacco cessation medication listed with current medications for discharge. YES Transition Record was faxed to follow-up provider with the following elements: Reason for admission, procedures, tests, principal diagnosis, pending studies, patient instructions, 02/11 contact information for unit, phone number to obtain pending test results, plan for follow-up care, physician follow-up, advanced directive information, and medication list with dose, duration and instructions. This information was included in the following documents: History and physical, lab results, study results, progress notes, social work planning form, DC instruction form, patient visit summary, and medication reconciliation form. Date & time record faxed: 03/31/21 @ 1033 & 03/31/21 @ 1047 Record faxed to: Ruchi Valderrama @ [phone] & Gurpreet Lombardo @ [phone] Record discussed with/ report given to: Lillian & Nick, Pt's /DPOA
--- NOTE | 2021-03-31 20:39 | DS ---
DATE OF DISCHARGE: 03/31/2021 FINAL DIAGNOSES: AXIS I: 1. Bipolar disorder type 1, depressed. 2. Generalized anxiety disorder. 3. Impulse control disorder, unspecified. AXIS II: None. AXIS III: Hypertension, chronic kidney disease stage III, history of falls. HOSPITAL COURSE: The patient had a physical exam and routine lab work including CBC and chem profile, which were all within normal range except for the BUN was 22, repeat creatinine 1.2. The patient's urinalysis was within normal range. The patient's Tegretol level was 6.6. The patient was involved in the program including individual therapy, group therapy, activity therapy. The patient was on olanzapine 5 mg at night, temazepam 30 mg at night p.r.n., Tegretol 200 mg twice a day, Lamictal 100 mg at night, metoprolol 100 mg daily, Celebrex 100 mg twice a day, Valtrex 500 mg every 12 hours p.r.n. He was also on nicotine patch, also Tylenol 650 mg q.6 hours p.r.n. and olanzapine 2.5 mg q. 2 hours p.r.n. The patient at the time of discharge was medically stable. AFTERCARE PLANS: The patient should be returned home to her . The patient will continue to follow up with the primary care doctor and continue with the current medications. NOELLE ALLEN: Celsa TID: [id number]
== END 2021-03-31 10:00 | disposition home or self-care (01) | DRG 885 ==
LOC: GEROPSY 21:15
PROVIDERS: ADMIT Psychiatry & Neurology Psychiatry; ATTEND Psychiatry & Neurology Psychiatry
DX: F31.30 Bipolar disorder, current episode depressed, mild or moderate severity, unspecified (principal); N18.30 Chronic kidney disease, stage 3 unspecified; F63.9 Impulse disorder, unspecified; F41.1 Generalized anxiety disorder; I12.9 Hypertensive chronic kidney disease with stage 1 through stage 4 chronic kidney disease, or unspecified chronic kidney disease; Z91.81 History of falling; Z79.899 Other long term (current) drug therapy; Z98.51 Tubal ligation status; K59.09 Other constipation; G62.9 Polyneuropathy, unspecified; M19.90 Unspecified osteoarthritis, unspecified site; Z20.822 Contact with and (suspected) exposure to COVID-19
CPT/HCPCS: 36415; 80053; 80061; 80156; 81001; 82306; 82607; 83036; 83540; 83550; 83735; 84436; 84443; 84480; 85025; 85379; 86592; 87086; 93005; U0003; 97535